=== PATIENT | male | born 1960 | race Two or more races ===

== ENCOUNTER 2022-11-07 10:13 | Inpatient (IN) | payer MEDICAID ==
[~2022-11-07] VITALS: Ht 182.9 cm; Wt 96.4 kg
[2022-11-07 10:46] LABS: Basophils # (auto) 0 10 ^3/uL (0-0.2); Basophils % (auto) 0.3 % (0.0-2.0); Eosinophils # (auto) 0.1 10 ^3/uL (0-0.8); Eosinophils % (auto) 0.9 % (0.0-7.0); Hemoglobin 12.8 g/dL (13.5-17.5); Monocytes # (auto) 0.6 10 ^3/uL (0-1.3); Nucleated Red Blood Cells % 0.1 %; Red Cell Distribution Width 14.5 % (11.8-14.3); White Blood Cell 6.7 10^3/uL (4.4-10.8)
[2022-11-07 10:49] LABS: Hematocrit 39.1 % (41.0-53.0); Lymphocytes # (auto) 2.1 10 ^3/uL (0.4-5.4); Lymphocytes % (auto) 30.8 % (10.0-50.0); Mean Corpuscular Hemoglobin 26.4 pg (28.0-32.0); Mean Corpuscular Hgb Conc. 32.8 g/dL (32.0-36.0); Mean Corpuscular Volume 80.4 fL (80.0-100.0); Monocytes % (auto) 9.1 % (0.0-12.0); Neutrophils % (auto) 58.9 % (37.0-80.0); Red Blood Cells 4.87 10^6/uL (4.5-5.90)
[2022-11-07 10:50] LABS: Albumin 2.2 g/dL (3.4-5.0); Calcium 8.1 mg/dL (8.5-10.1); Potassium 4.1 mmol/L (3.5-5.1)
[2022-11-07 11:00] LABS: BUN/Creatinine Ratio 14.5 (10.0-20.0); Bilirubin, Total 0.2 mg/dL (0.2-1.0); Total Protein 5.8 g/dL (6.4-8.2)
[2022-11-07] MEDS ORDERED: ASPirin 81 mg TAB PO ONE (11:30)
[2022-11-07] MEDS ORDERED: LISINOPRIL 20 MG TAB PO ONE (11:30)
[2022-11-07] MEDS ORDERED: InsuLIN REG 1unit/0.01ml Soln (100units/ml) IV ONE (12:15)
[2022-11-07] MEDS ORDERED: MORPHINE SULFATE INJ 2 MG/ml SYRG IV PRN ×2 (14:30)
[2022-11-07] MEDS ORDERED: HYDROcodone-ACET 5/325MG TAB PO PRN (14:30)
[2022-11-07] MEDS ORDERED: NITROGLYCERIN 0.4 MG SL TAB SL PRN (14:30)
[2022-11-07] MEDS ORDERED: LABETALOL HCL 5 MG/ML 4ML SYRINGE IV PRN (14:30)
[2022-11-07] MEDS ORDERED: DEXTROSE (50%) 50ML SYRG IV PRN (14:30)
[2022-11-07] MEDS ORDERED: NIFEdipine 10 MG CAP PO ONE (14:30)
[2022-11-07] MEDS ORDERED: DOCUSATE SOD 100 MG CAP PO PRN (14:30)
[2022-11-07] MEDS ORDERED: ACETAMINOPHEN 500 MG TAB PO PRN (14:30)
[2022-11-07] MEDS ORDERED: ONDANSETRON HCL 4 MG/2 ML VIAL IV PRN (14:30)
[2022-11-07] MEDS: ACCU-CHEK COMFORT CURVE STRIP VI SCH ×2 (16:00→20:00)
[2022-11-07] MEDS: InsuLIN REG 1unit/0.01ml Soln (100units/ml) SC SCH ×3 (16:00→22:52)
[2022-11-07 21:51] LABS: Urine Bacteria FEW /hpf (None Seen); Urine Blood TRACE /uL (Negative); Urine Hyaline Cast FEW /lpf (0 - 2); Urine WBC 2 /hpf (0 - 3)
[2022-11-08] MEDS: InsuLIN REG 1unit/0.01ml Soln (100units/ml) SC SCH ×2 (01:25→04:17)
[2022-11-08] MEDS: ACCU-CHEK COMFORT CURVE STRIP VI SCH ×3 (04:16→08:34)
[2022-11-08] MEDS ORDERED: DEXTROSE (50%) 50ML SYRG IV PRN (07:30)
[2022-11-08] MEDS ORDERED: SODIUM CHLORIDE 0.9% 1,000 ML IV ONE (07:30)
[2022-11-08] MEDS ORDERED: ACCU-CHEK COMFORT CURVE STRIP VI SCH (08:00)
[2022-11-08] MEDS ORDERED: InsuLIN REG 1unit/0.01ml Soln (100units/ml) SC SCH (08:00)
[2022-11-08] MEDS ORDERED: GABA-1250 PO (08:39)
[2022-11-08] MEDS ORDERED: HYDR25TA4 PO (08:39)
[2022-11-08] MEDS ORDERED: METF-370 PO (08:39)
[2022-11-08] MEDS ORDERED: AMLO1TAB22 PO (08:39)
[2022-11-08] MEDS ORDERED: LISI40TA16 PO (08:39)
[2022-11-08] MEDS ORDERED: SIMV20TA20 PO (08:39)
[2022-11-08 09:00] VITALS: BP 169/81
[2022-11-08] MEDS ORDERED: ASPirin 81 mg TAB PO SCH (10:00)
[2022-11-08] MEDS ORDERED: amLODIPine BESYLATE 5 MG TAB PO SCH (10:00)
[2022-11-08] MEDS ORDERED: LISI-713 PO (11:02)
[2022-11-08] MEDS ORDERED: AML5T PO (11:02)
[2022-11-08] MEDS ORDERED: HYDR25TA5 PO (11:02)
[2022-11-08] MEDS ORDERED: SIMV40TA42 PO (11:02)
[2022-11-08] MEDS ORDERED: METF-929 PO (11:02)
== END 2022-11-08 11:52 | disposition home or self-care (01) | DRG 199 ==
LOC: ER 10:13 → TELE 14:33 → TELE-WESTW 11-08 07:59
PROVIDERS: ADMIT Nurse Practitioner Acute Care; ATTEND Nurse Practitioner Acute Care
DX: I16.9 Hypertensive crisis, unspecified (principal); E11.40 Type 2 diabetes mellitus with diabetic neuropathy, unspecified; E11.65 Type 2 diabetes mellitus with hyperglycemia; I10 Essential (primary) hypertension; E78.5 Hyperlipidemia, unspecified; R51.9 Headache, unspecified; Z79.4 Long term (current) use of insulin; Z91.199 Patient's noncompliance with other medical treatment and regimen due to unspecified reason; Z79.899 Other long term (current) drug therapy
CPT/HCPCS: 36415; 70450; 71045; 80053; 81001; 82962; 83036; 83880; 84484; 85025; 93005; 96372; 96374; 96375; 99291; G0378; J1815; J3490

== ENCOUNTER 2025-04-12 14:00 | Inpatient (IN) | payer MEDICAID ==
[~2025-04-12] VITALS: Ht 182.9 cm; Wt 101.5 kg
[~2025-04-12 14:00] MED LIST: AML5T PO; AMLO1TAB22 PO; GABA-1250 PO; HYDR25TA4 PO; HYDR25TA5 PO; LISI-713 PO; LISI40TA16 PO; METF-370 PO; METF-929 PO; SIMV20TA20 PO; SIMV40TA42 PO
--- NOTE | 2025-04-12 14:08 | ED.PDOC ---
Altered Mental Status HPI Comments 65 year old male with PMHx HTN, HLD presents to the ED via EMS with a chief compliant of ALOC onset 3 days. Per EMS, patient's son noticed patient has been confused, laying in bed for the past 3 days. Upon ED arrival, patient is A7O to self, able to follow some commands. No other symptoms or modifying factors pre sent at this time. Chief Complaint: ALOC Time Seen by MD: 14:05 Reviewed Notes: Medications, Allergies Allergies: Coded Allergies: NO KNOWN ALLERGIES (Unverified , 11/07/22) Home Meds Active Scripts Hctz (Hydrochlorothiazide) 25 Mg Tab, 25 MG PO DAILY, #90 TAB Prov:MALINI NAGEL MOBILITY DEVELOPER 11/08/22 Simvastatin (Zocor) 40 Mg Tab, 0.5 TAB PO DAILY, #90 TAB 1 Refill Prov:MALINI NAGEL MOBILITY DEVELOPER 11/08/22 Lisinopril (Zestril) 40 Mg Tab, 1 TAB PO DAILY, #90 TAB 3 Refills Prov:MALINI NAGEL MOBILITY DEVELOPER 11/08/22 Amlodipine Besylate (NORVASC TABLET) 5 Mg Tb, 2 TAB PO DAILY, #120 TAB 5 Refills Prov:MALINI NAGEL MOBILITY DEVELOPER 11/08/22 Metformin HCl (Metformin Hydrochloride) 1,000 Mg Tab, 1000 MG PO BID, #120 TAB Prov:MALINI NAGEL MOBILITY DEVELOPER 11/08/22 Reported Medications Metformin Hydrochloride (Metformin Hcl) 500 Mg Tab, 1000 MG PO BIDWM, MG 11/08/22 Amlodipine Besylate (Amlodipine Besylate) 5 Mg Tab, 10 MG PO DAILY, MG 11/08/22 Hydrochlorothiazide (Hydrochlorothiazide) 25 Mg Tab, 25 MG PO DAILY, MG 11/08/22 Simvastatin (Simvastatin) 20 Mg Tab, 20 MG PO HS 11/08/22 Gabapentin (Gabapentin) 300 Mg Cap, 1 CAP PO HS 11/08/22 Lisinopril (Lisinopril) 40 Mg Tab, 1 TAB PO DAILY, #30 TAB 5 Refills 11/08/22 Information Source: Relative (Child), Emergency Med Personnel Mode of Arrival: EMS Severity: Moderate Timing: Days Duration: Since onset Prehospital treatment: None Quality: Decreased Alertness, Change in Behavior, Confusion History of: None Past Medical History PAST MEDICAL HISTORY: DM, HTN Surgical History: Denies all surgeries Family History Family History: Reviewed,noncontributory to illness Social History Smoker: Non-Smoker Alcohol: Denies ETOH Use Drugs: Denies Drug Use Lives In: Home Unable to Obtain due to: Altered Mental Status Physical Exam General Appearance: Normal HEENT: Normal ENT Inspection, Pharynx Normal, TMs Normal Neck: Full Range of Motion, Non-Tender, Normal, Normal Inspection Respiratory: Chest Non-Tender, Lungs Clear, No Accessory Muscle Use, No Respiratory Distress, Normal Breath Sounds Cardiovascular: No Edema, No JVD, No Murmur, No Gallop, Normal Peripheral Pulses, Regular Rate/Rhythm Breast Exam: Deferred Gastrointestinal: No Organomegaly, Non Tender, No Pulsatile Mass, Normal Bowel Sounds, Soft Genitalia: Deferred Pelvic: Deferred Rectal: Deferred Extremities: No calf tenderness, Normal capillary refill, Normal inspection, Normal range of motion, Non-tender, No pedal edema Musculoskeletal : Apperance: Normal Neurologic: Other (A&O to self, follows some commands) Cerebellar Function: Normal Reflexes: Normal Skin: Dry, Normal Color, Warm Lymphatic: No Adenopathy Was a procedure done? Was a procedure done?: No Differential Diagnosis (ALOC) Differential Diagnosis: Dehydration, Hypoglycemia, Encephalopathy, Sepsis, Hypoxemia, ETOH Intoxication, Heart Failure, Renal Failure X-Ray, Labs, Meds, VS Vital Signs Date Time Temp Pulse Resp B/P (MAP) Pulse Ox O2 Delivery O2 Flow Rate FiO2 04/12/25 14:04 53 04/12/25 14:00 95.0 54 20 136/63 98 95.0 Lab Test 04/12/25 15:17 04/12/25 15:13 04/12/25 14:00 Range/Units Troponin I High Sensitivity Pending 19 </=54 ng/L Urine Color Pending Urine Clarity Pending Urine pH Pending Urine Specific [place] Pending Urine Protein Pending Urine Ketones Pending Urine Blood Pending Urine Nitrite Pending Urine Bilirubin Pending Urine Urobilinogen Pending Urine Leukocyte Esterase Pending Urine RBC Pending Urine Microscopic WBC Pending Urine Squamous Epithelial Cells Pending Urine Bacteria Pending Urine Glucose Pending White Blood Count 5.9 4.4-10.8 10^3/uL Red Blood Count 3.36 L 4.5-5.90 10^6/uL Hemoglobin 8.6 L 13.5-17.5 g/dL Hematocrit 27.3 L 41.0-53.0 % Mean Corpuscular Volume 81.0 80.0-100.0 fL Mean Corpuscular Hemoglobin 25.5 L 28.0-32.0 pg Mean Corpuscular Hemoglobin Concent 31.4 L 32.0-36.0 g/dL Red Cell Distribution Width 18.5 H 11.8-14.3 % Platelet Count 209 140-450 10^3/uL Mean Platelet Volume 8.8 6.9-10.8 fL Neutrophils (%) (Auto) 84.3 H 37.0-80.0 % Lymphocytes (%) (Auto) 8.3 L 10.0-50.0 % Monocytes (%) (Auto) 7.1 0.0-12.0 % Eosinophils (%) (Auto) 0.0 0.0-7.0 % Basophils (%) (Auto) 0.3 0.0-2.0 % Neutrophils # (Auto) 5.0 1.6-8.6 10 ^3/uL Lymphocytes # (Auto) 0.5 0.4-5.4 10 ^3/uL Monocytes # (Auto) 0.4 0-1.3 10 ^3/uL Eosinophils # (Auto) 0 0-0.8 10 ^3/uL Basophils # (Auto) 0 0-0.2 10 ^3/uL Nucleated Red Blood Cells 0.2 % Sodium Level 140 136-145 mmol/L Potassium Level 6.0 *H 3.5-5.1 mmol/L Chloride Level 108 H 98-107 mmol/L Carbon Dioxide Level 16 L 20-31 mmol/L Anion Gap 16 H 5-15 Blood Urea Nitrogen 69 H 9-23 mg/dL Creatinine 6.08 H 0.700-1.30 mg/dL Glomerular Filtration Rate Calc 10 >90 mL/min BUN/Creatinine Ratio 11.3 10.0-20.0 Serum Glucose 157 H 74-106 mg/dL Lactic Acid Level 1.0 0.4-2.0 mmol/L Calcium Level 7.0 L 8.7-10.4 mg/dL Total Bilirubin < 0.2 L 0.2-1.0 mg/dL Aspartate Amino Transferase (AST) 56 H 13-40 U/L Alanine Aminotransferase (ALT) 47 H 7-40 U/L Alkaline Phosphatase 142 H 46-116 U/L B-Type Natriuretic Peptide 1231.62 0-100 pg/mL Total Protein 5.9 5.7-8.2 g/dL Albumin 3.5 3.2-4.8 g/dL Current Medications Medications (Trade) Dose Ordered Sig/Lurdes Route Start Time Stop Time Status Last Admin Sodium Chloride 1,000 ml @ 1,000 mls/hr Q1H ONCE IV 04/12/25 14:15 04/12/25 15:14 DC 04/12/25 14:52 Calcium Gluconate/ Sodium Chloride 50 ml @ 100 mls/hr Q30M IV 04/12/25 15:15 04/12/25 16:14 04/12/25 16:[address] [address] Ph: [phone] DIAGNOSTIC IMAGING Diagnostic Imaging Report : [id number] Signed PATIENT: KRISS TUCKER ACCT: [id number] UNIT: [id number] : 1960 LOC: ER ROOM / BED: / AGE / SEX: 65 / M ADM STATUS: REG ER SERVICE 16 ORDERING PHYSICIAN: DRAKE CARLOS MD PROCEDURE(s): CXRP - CHEST PORTABLE REASON: [facility] ORDER NUMBER(s): [id number], ACCESSION NUMBER(s): [id number] EXAM: XY CHEST PORTABLE HISTORY: [facility] COMPARISON: XY CHEST PORTABLE on DOS: 11/07/22 TECHNIQUE: Portable AP view of the chest was performed. FINDINGS: There is diffuse interstitial prominence, greater centrally and greater on the right. No pneumothorax. The heart is upper limits of normal in size. No fractures are identified about the bony thorax. IMPRESSION: Diffuse interstitial prominence is most suggestive of CHF, less likely reactive airways disease or interstitial pneumonia. ATED BY: JOSE ALMONTE MD DICTATED DATE/TIME: 04/12/251440 SIGNED BY: JOSE ALMONTE MD SIGNED DATE/TIME: 04/12/25 144 CC: [address] [address] Ph: [phone] DIAGNOSTIC IMAGING Diagnostic Imaging Report : [id number] Signed PATIENT: KRISS TUCKER ACCT: [id number] UNIT: [id number] : 1960 LOC: ER ROOM / BED: / AGE / SEX: 65 / M ADM STATUS: REG ER SERVICE 1416 ORDERING PHYSICIAN: DRAKE CARLOS MD PROCEDURE(s): HWOCT - HEAD WITHOUT CONTRAST REASON: ams ORDER NUMBER(s): [id number], ACCESSION NUMBER(s): [id number] EXAM: CT HEAD WITHOUT CONTRAST HISTORY: ams COMPARISON: CT HEAD WITHOUT CONTRAST on DOS: 11/07/22 TECHNIQUE: Noncontrast axial CT images of the head were performed. Sagittal and coronal reformatted images were obtained. This CT exam was performed using 1 or more of the following dose reduction techniques: Automated exposure control, adjustment of the mA and/or kv according to patient size, or the use of i terative reconstruction techniques. Radiation Dose: CTDI volume is 53.99 mGy. Dose-length product is 971.88 mGy*cm FINDINGS: No intracranial hemorrhage, mass, midline shift, hydrocephalus, or evidence of acute large vessel infarct. There is mild cerebellar tonsillar ectopia without evidence of Chiari I malformation. There is divergent optic gaze. There is mucosal thickening throughout the paranasal sinuses, with sparing of the left sphenoid sinus, with fluid in the maxillary sinuses, agvs-xrfyjit-hscy-right. The bilateral mastoid air cells and middle ear spaces are clear. No cranial fracture. There is diffuse scalp edema, greatest in the parietal regions, muvv-lhjvugk-fpkh-right. IMPRESSION: 1. No acute intracranial process. 2. Diffuse scalp edema, ttmq-zrzbwub-gqxg-right, etiology unknown. Does the patient have symptoms of anasarca or cellulitis 3. Paranasal sinus disease, greatest in the left maxillary sinus. ATED BY: JOSE ALMONTE MD DICTATED DATE/TIME: 04/12/25 150 SIGNED BY: JOSE ALMONTE MD SIGNED DATE/TIME: 04/12/25 150 CC: Time of 1ST Reevaluation: 14:35 Reevaluation 1ST: Unchanged Patient Education/Counseling: Other Family Education/Counseling: Diagnosis, Treatment, Prognosis SEPSIS Sepsis Screen Physician Orders Urinalysis (04/12/25 14:01) Blood Culture (04/12/25 14:01) Chest Portable (04/12/25 14:17) Head Without Contrast (04/12/25 14:16) Troponin-I Hs (04/12/25 15:01) Troponin-I Hs (04/12/25 17:01) Electrocardigram (04/12/25 15:01) Electrocardigram (04/12/25 17:01) Calcium Gluc 1,000mg/50ml-Ns (04/12/25 15:15) Cefepime 2gm/50ml Ns (Maxipime 2gm/50ml) (04/12/25 15:15) Vancomycin 1gm/250ml Kit (04/12/25 15:15) Insert Espinal Catheter QSHIFT (04/12/25 15:10) Sodium Bicarb 50meq/50ml Vial (04/12/25 16:00) Insulin R (Human) (Insulin R) (04/12/25 16:00) Dextrose 50% Syringe (04/12/25 16:00) Acetaminophen Iv (Ofirmev) (04/12/25 16:15) Vital Signs Date Time Temp Pulse Resp B/P (MAP) Pulse Ox O2 Delivery O2 Flow Rate FiO2 04/12/25 14:04 53 04/12/25 14:00 95.0 54 20 136/63 98 95.0 Laboratory Tests Test 04/12/25 14:00 Lactic Acid Level 1.0 mmol/L (0.4-2.0) White Blood Count 5.9 10^3/uL (4.4-10.8) Medications Medications Dose Ordered Sig/Lurdes Route Start Time Stop Time Status Last Admin Dose Admin Calcium Gluconate/ Sodium Chloride 50 ml @ 100 mls/hr Q30M IV 04/12/25 15:15 04/12/25 16:14 04/12/25 16:00 Sodium Chloride 1,000 ml @ 1,000 mls/hr Q1H ONCE IV 04/12/25 14:15 04/12/25 15:14 DC 04/12/25 14:52 Departure 1 Departure Time of Disposition: 16:03 (Patient likely with renal failure causing hyperkalemia secondary to obstruction. Patient also possibly septic. And you not give patient fluid boluses patient is clinically volume overloaded. We will admit patient for further workup) Impression: Primary Impression: Metabolic encephalopathy Additional Impressions: Altered mental status Hyperkalemia Acute renal failure (ARF) Disposition: ADMITTED INPATIENT Admit to: [facility] Condition: Guarded Critical Care Note Critical Care Time?: Yes Critical care comment: Acute renal failure with hyperkalemia Authorized and Performed by: Drake Carlos MD Total critical care time: Approximately 122 minutes Due to a high probability of clinically significant, life threatening deterioration, the patient required my highest level of preparedness to intervene emergently and I personally spent this critical care time directly and personally managing the patient. This critical care time included obtaining a history; examining the patient; pulse oximetry; ordering and review of studies; arranging urgent treatment with development of a management plan; evaluation of patient's response to treatment; frequent reassessment; and, discussions with other providers. This critical care time was performed to assess and manage the high probability of imminent, life-threatening deterioration that could result in multi-organ failure. It was exclusive of separately billable procedures and treating other patients and teaching time. Please see my other sections and the rest of the note for further information on patient assessment and treatment. Stability Stability form required: No Heart Score Heart Score: Heart Score Response (Comments) Value History N/A 0 EKG N/A 0 Age N/A 0 Risk Factors N/A 0 Troponin N/A 0 Total 0 I personally scribed for DRAKE CARLOS MD ([email or web address]) on 04/12/25 at 14:08. Electronically submitted by Tyra Gutierrez ([email or web address]). I personally scribed for DRAKE CARLOS MD ([email or web address]) on 04/12/25 at 15:24. Electronically submitted by Tyra Gutierrez ([email or web address]). DRAKE CARLOS MD Apr 12, 2025 14:08
[2025-04-12 14:20] VITALS: PULSE 54; RESP 14; O2SAT 93
[2025-04-12 14:26] LABS: Hematocrit 27.3 % (41.0-53.0); Hemoglobin 8.6 g/dL (13.5-17.5); Mean Corpuscular Hemoglobin 25.5 pg (28.0-32.0); Mean Corpuscular Volume 81.0 fL (80.0-100.0); Nucleated Red Blood Cells % 0.2 %
[2025-04-12 14:44] LABS: Albumin 3.5 g/dL (3.2-4.8); Anion Gap 16 (5-15); BUN/Creatinine Ratio 11.3 (10.0-20.0); Sodium 140 mmol/L (136-145); Total Protein 5.9 g/dL (5.7-8.2)
--- NOTE | 2025-04-12 14:44 | DVH ---
EXAM: XY CHEST PORTABLE HISTORY: ams COMPARISON: XY CHEST PORTABLE on DOS: 11/07/22 TECHNIQUE: Portable AP view of the chest was performed. FINDINGS: There is diffuse interstitial prominence, greater centrally and greater on the right. No pneumothorax. The heart is upper limits of normal in size. No fractures are identified about the bony thorax. IMPRESSION: Diffuse interstitial prominence is most suggestive of CHF, less likely reactive airways disease or interstitial pneumonia.
[2025-04-12 14:52] LABS: Alanine Aminotransferase 47 U/L (7-40); Alkaline Phosphatase 142 U/L (46-116); Bilirubin, Total < 0.2 mg/dL (0.2-1.0); Blood Urea Nitrogen 69 mg/dL (9-23); Calcium 7.0 mg/dL (8.7-10.4); Carbon Dioxide 16 mmol/L (20-31); Chloride 108 mmol/L (98-107); Glucose 157 mg/dL (74-106)
[2025-04-12] MEDS: SODIUM CHLORIDE 0.9% 1,000 ML IV ONE (14:52)
[2025-04-12 14:58] LABS: Potassium 6.0 mmol/L (3.5-5.1)
--- NOTE | 2025-04-12 15:05 | DVH ---
EXAM: CT HEAD WITHOUT CONTRAST HISTORY: ams COMPARISON: CT HEAD WITHOUT CONTRAST on DOS: 11/07/22 TECHNIQUE: Noncontrast axial CT images of the head were performed. Sagittal and coronal reformatted images were obtained. This CT exam was performed using 1 or more of the following dose reduction techniques: Automated exposure control, adjustment of the mA and/or kv according to patient size, or the use of iterative reconstruction techniques. Radiation Dose: CTDI volume is 53.99 mGy. Dose-length product is 971.88 mGy*cm FINDINGS: No intracranial hemorrhage, mass, midline shift, hydrocephalus, or evidence of acute large vessel infarct. There is mild cerebellar tonsillar ectopia without evidence of Chiari I malformation. There is divergent optic gaze. There is mucosal thickening throughout the paranasal sinuses, with sparing of the left sphenoid sinus, with fluid in the maxillary sinuses, dywl-vrdhtut-irwp-right. The bilateral mastoid air cells and middle ear spaces are clear. No cranial fracture. There is diffuse scalp edema, greatest in the parietal regions, fpfg-otmzgtt-buba-right. IMPRESSION: 1. No acute intracranial process. 2. Diffuse scalp edema, jing-rzptvpv-gbwi-right, etiology unknown. Does the patient have symptoms of anasarca or cellulitis 3. Paranasal sinus disease, greatest in the left maxillary sinus.
--- NOTE | 2025-04-12 15:12 | ECG ---
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
[2025-04-12] MEDS: CALCIUM GLUC 1,000mg/50ml-NS 50 ML IV SCH (15:59)
[2025-04-12 16:12] LABS: Urine Budding Yeast OCCASIONAL /hpf (None Seen); Urine Protein, UAD 3+ (Negative)
[2025-04-12] MEDS ORDERED: ACETAMINOPHEN IV 1000 MG/100ML (10MG/ML) IV ONE (16:15)
[2025-04-12] MEDS: SODIUM BICARB 8.4% 50Meq/50ml SYR Vial IV ONE (16:17)
[2025-04-12] MEDS: DEXTROSE (50%) 50ML SYRG IV ONE (16:18)
[2025-04-12] MEDS: InsuLIN REG 1unit/0.01ml Soln (100units/ml) IV ONE (16:23)
[2025-04-12] MEDS: CEFEPIME 2GM/50ML NS 50 ML IV ONE (16:50)
--- NOTE | 2025-04-12 16:59 | ECG ---
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
[2025-04-12] MEDS: VANCOMYCIN 1GM/250ML KIT 250 ML IV ONE (17:10)
--- NOTE | 2025-04-12 17:24 | ECG ---
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
[2025-04-12] MEDS: SODIUM CHLORIDE 0.9% 500 ML IV ONE (19:45)
[2025-04-12] MEDS ORDERED: MORPHINE SULFATE INJ 2 MG/ml SYRG IV PRN (19:45)
[2025-04-12] MEDS ORDERED: DEXTROSE (50%) 50ML SYRG IV PRN (19:45)
[2025-04-12] MEDS ORDERED: NITROGLYCERIN 0.4 MG SL TAB SL PRN (19:45)
[2025-04-12 19:59] LABS: Base Excess -8.9 mmol/L (-2.0-3.0)
[2025-04-12 19:59] LABS: Sodium 143 mmol/L (136-145)
[2025-04-12 20:00] LABS: Anion Gap 19 (5-15)
[2025-04-12 20:04] VITALS: PULSE 59; RESP 18; O2SAT 97
[2025-04-12 20:05] LABS: BUN/Creatinine Ratio 11.6 (10.0-20.0)
[2025-04-12 20:41] LABS: Blood Urea Nitrogen 71 mg/dL (9-23); Calcium 7.2 mg/dL (8.7-10.4); Carbon Dioxide 14 mmol/L (20-31); Chloride 110 mmol/L (98-107); Glucose 207 mg/dL (74-106); Potassium 5.2 mmol/L (3.5-5.1)
[2025-04-12 20:42] LABS: Creatine Kinase IFCC 699 U/L (46-171)
[2025-04-12] MEDS: SODIUM ZIRCONIUM CYCL 10 GM PAK PO ONE (22:45)
[2025-04-12] MEDS: FUROSEMIDE 40 MG/4 ML VIAL IV ONE (22:45)
--- NOTE | 2025-04-12 22:45 | DVHHP2 ---
History of Present Illness Reason for Visit: Altered mental status History of Present Illness 65-year-old male presents for evaluation of altered mental status. Patient was noted to be E come progressively more lethargic over the past few day by family members. Patient is currently lethargic and oriented x3. Patient denies chest pain. Reports mild shortness for breath. No unilateral weakness or slurred speech noted. Past Medical History Hypertension, chronic kidney disease, diabetes mellitus, dyslipidemia Past Surgical History Denies Family History Noncontributory Smoke: No ALCOHOL: none Drugs: None Lives: with Family Review of Systems Review of Systems Review of systems are limited due to the patient's altered mental status. Allergies: Coded Allergies: NO KNOWN ALLERGIES (Unverified , 11/07/22) Medications Current Medications Medications Dose Ordered Sig/Lurdes Route Start Time Stop Time Status Last Admin Dose Admin Hydralazine HCl 10 mg Q6HP PRN IV 04/12/25 19:45 Diagnostic Test (Pha) 1 strip Q6HR 04/13/25 00:00 Insulin Human Regular Q6HR SC 04/13/25 00:00 Dextrose 50 ml UD PRN IV 04/12/25 19:45 Ondansetron HCl 4 mg Q4HP PRN IV 04/12/25 19:45 Nitroglycerin 0.4 mg Q5MINP PRN SL 04/12/25 19:45 Morphine Sulfate 2 mg Q30M PRN IV 04/12/25 19:45 Exam Vital Signs Vital Signs Date Time Temp Pulse Resp B/P (MAP) Pulse Ox O2 Delivery O2 Flow Rate FiO2 04/12/25 21:00 60 18 157/63 (94) 97 04/12/25 20:04 98.1 98.1 04/12/25 20:04 Nasal Cannula* 2 28 Exam Gen: 65-year-old male in mild distress, morbidly obese Skin: Warm, dry, normal color and texture, no rash. HEENT: Normocephalic atraumatic, mucous membranes moist and pink. Neck: Cervical and supraclavicular nodes normal without enlargement, trachea is midline, thyroid gland is normal without masses. Pulmonary: Clear to auscultation and percussion bilaterally. Cardiac: Regular rate and rhythm. No murmur Abdomen: Soft, nontender, nondistended, bowel sounds present all 4 quadrants, no guarding, no rigidity, no organomegaly. Extremities: No cyanosis, clubbing, no edema Neuro: Cranial nerves II through XII grossly intact, lethargic, no focal motor deficits. Labs/Xrays ORDERING PHYSICIAN: DRAKE CARLOS MD PROCEDURE(s): HWOCT - HEAD WITHOUT CONTRAST REASON: [facility] ORDER NUMBER(s): [id number], ACCESSION NUMBER(s): [id number] EXAM: CT HEAD WITHOUT CONTRAST HISTORY: ams COMPARISON: CT HEAD WITHOUT CONTRAST on DOS: 11/07/22 TECHNIQUE: Noncontrast axial CT images of the head were performed. Sagittal and coronal reformatted images were obtained. This CT exam was performed using 1 or more of the following dose reduction techniques: Automated exposure control, adjustment of the mA and/or kv according to patient size, or the use of iterative reconstruction techniques. Radiation Dose: CTDI volume is 53.99 mGy. Dose-length product is 971.88 mGy*cm FINDINGS: No intracranial hemorrhage, mass, midline shift, hydrocephalus, or evidence of acute large vessel infarct. There is mild cerebellar tonsillar ectopia without evidence of Chiari I malformation. There is divergent optic gaze. There is mucosal thickening throughout the paranasal sinuses, with sparing of the left sphenoid sinus, with fluid in the maxillary sinuses, [id number]. Th e bilateral mastoid air cells and middle ear spaces are clear. No cranial fracture. There is diffuse scalp edema, greatest in the parietal regions, [id number]. IMPRESSION: 1. No acute intracranial process. 2. Diffuse scalp edema, [id number]-right, etiology unknown. Does the patient have symptoms of anasarca or cellulitis 3. Paranasal sinus disease, greatest in the left maxillary sinus. RING PHYSICIAN: DRAKE CARLOS MD PROCEDURE(s): CXRP - CHEST PORTABLE REASON: [facility] ORDER NUMBER(s): [id number], ACCESSION NUMBER(s): [id number] EXAM: XY CHEST PORTABLE HISTORY: ams COMPARISON: XY CHEST PORTABLE on DOS: 11/07/22 TECHNIQUE: Portable AP view of the chest was performed. FINDINGS: There is diffuse interstitial prominence, greater centrally and greater on the right. No pneumothorax. The heart is upper limits of normal in size. No fractures are identified about the bony thorax. IMPRESSION: Diffuse interstitial prominence is most suggestive of CHF, less likely reactive airways disease or interstitial pneumonia. ATED BY: JOSE ALMONTE MD Labs Test 04/12/25 19:51 04/12/25 16:55 04/12/25 15:13 04/12/25 14:00 Range/Units Blood Gas Specimen Type Arterial Blood Gas Sample Site Right brachial Blood Gas Patient Temperature 37.0 Arterial Blood Date Drawn [id number] Arterial Blood pH 7.287 L 7.350-7.450 Arterial Blood Partial Pressure CO2 36.3 35.0-48.0 mmHg Arterial Blood Partial Pressure O2 85.5 83.0-108.0 mmHg Arterial Blood HCO3 16.9 L 21.0-28.0 mmol/L Arterial Blood Oxygen Saturation 95.3 94.0-98.0 % Arterial Blood Base Excess -8.9 L -2.0-3.0 mmol/L Arterial Blood Oxyhemoglobin 94.1 94.0-98.0 % Arterial Blood Carboxyhemoglobin 1.1 0.5-1.5 % Arterial Blood Methemoglobin 0.2 0.0-1.5 % Andrzej Test N/a Blood Gas Total Hemoglobin 9.00 L 13.5-17.5 g/dL Blood Gas Liter Flow 2.00 Blood Gas Modality Nasal cannula FiO2 % 28.0 Sodium Level 143 136-145 mmol/L Potassium Level 5.2 H 3.5-5.1 mmol/L Chloride Level 110 H 98-107 mmol/L Carbon Dioxide Level 14 L 20-31 mmol/L Anion Gap 19 H 5-15 Blood Urea Nitrogen 71 H 9-23 mg/dL Creatinine 6.10 H 0.700-1.30 mg/dL Glomerular Filtration Rate Calc 10 >90 mL/min BUN/Creatinine Ratio 11.6 10.0-20.0 Serum Glucose 207 H 74-106 mg/dL Calcium Level 7.2 L 8.7-10.4 mg/dL Creatine Kinase 699 H 46-171 U/L Troponin I High Sensitivity 18 </=54 ng/L Urine Color Light-yellow Yellow Urine Clarity Turbid H Clear Urine pH 6.0 5.0-9.0 Urine Specific [place] 1.014 1.001-1.035 Urine Protein 3+ H Negative Urine Ketones Negative Negative Urine Blood Negative Negative /uL Urine Nitrite Negative Negative Urine Bilirubin Negative Negative Urine Urobilinogen Normal Negative mg/dL Urine Leukocyte Esterase Negative Negative /uL Urine RBC 2 0 - 3 /hpf Urine Microscopic WBC < 1 0-3 /HPF Urine Squamous Epithelial Cells None seen <5 /hpf Urine Bacteria None seen None Seen /hpf Urine Yeast (Budding) Occasional None Seen /hpf Urine Glucose 3+ H Normal mg/dL White Blood Count 5.9 4.4-10.8 10^3/uL Red Blood Count 3.36 L 4.5-5.90 10^6/uL Hemoglobin 8.6 L 13.5-17.5 g/dL Hematocrit 27.3 L 41.0-53.0 % Mean Corpuscular Volume 81.0 80.0-100.0 fL Mean Corpuscular Hemoglobin 25.5 L 28.0-32.0 pg Mean Corpuscular Hemoglobin Concent 31.4 L 32.0-36.0 g/dL Red Cell Distribution Width 18.5 H 11.8-14.3 % Platelet Count 209 140-450 10^3/uL Mean Platelet Volume 8.8 6.9-10.8 fL Neutrophils (%) (Auto) 84.3 H 37.0-80.0 % Lymphocytes (%) (Auto) 8.3 L 10.0-50.0 % Monocytes (%) (Auto) 7.1 0.0-12.0 % Eosinophils (%) (Auto) 0.0 0.0-7.0 % Basophils (%) (Auto) 0.3 0.0-2.0 % Neutrophils # (Auto) 5.0 1.6-8.6 10 ^3/uL Lymphocytes # (Auto) 0.5 0.4-5.4 10 ^3/uL Monocytes # (Auto) 0.4 0-1.3 10 ^3/uL Eosinophils # (Auto) 0 0-0.8 10 ^3/uL Basophils # (Auto) 0 0-0.2 10 ^3/uL Nucleated Red Blood Cells 0.2 % Lactic Acid Level 1.0 0.4-2.0 mmol/L Total Bilirubin < 0.2 L 0.2-1.0 mg/dL Aspartate Amino Transferase (AST) 56 H 13-40 U/L Alanine Aminotransferase (ALT) 47 H 7-40 U/L Alkaline Phosphatase 142 H 46-116 U/L B-Type Natriuretic Peptide 1231.62 0-100 pg/mL Total Protein 5.9 5.7-8.2 g/dL Albumin 3.5 3.2-4.8 g/dL SEPSIS Sepsis Screen Date sepsis recognized/suspect: Apr 12, 2025 Time Sepsis recognized/suspect: 2020 Recent Procedure: No On Antibiotic Therapy: No Respiratory Rate >20: No Heart Rate >90: No Temp<36 C (96.8 F) or >38.3 C: No SBP <90 or MAP <65 mmHG: No New Acute Mental Status Change: No Is the patient on CPAP, BIPAP,: No Physician Orders Insert Espinal Catheter QSHIFT (04/12/25 15:10) Hydralazine Injection (Apresoline Inject (04/12/25 19:45) *[facility] (04/12/25 19:35) Abg W/ Co-Ox (04/12/25 19:35) Glucose Blood (Accu-Chek Comfort Curve T (04/13/25 00:00) Insulin R (Human) (Insulin R) (04/13/25 00:00) Dextrose 50% Syringe (04/12/25 19:45) Admit (04/12/25 19:35) Ondansetron Hcl (Zofran) (04/12/25 19:45) Complete Blood Count (04/13/25 04:00) Comprehensive Metabolic Panel (04/13/25 04:00) Npo (Nothing By Mouth) Diet (04/13/25 Breakfast) Condition: Critical (04/12/25 19:35) Bedrest With Bathroom Privileg (04/12/25 19:35) Nitroglycerin Sublingual (Ntrostat Subli (04/12/25 19:45) Morphine Sulfate Injection (04/12/25 19:45) Stat Ekg For Chest Pain (04/12/25 19:35) Notify Of Changes From Base (04/12/25 19:35) Clinical Orthoptist For 24 Hours (04/12/25 19:35) Emergency Dysrhythmia Protocol (04/12/25 19:35) Rhythm Strips Once Every Shift (04/12/25 19:35) Oxygen By Nasal Cannula (04/12/25 19:35) Sodium Zirconium Cyclosilicate (Lokelma) (04/12/25 22:45) Furosemide Injection (Lasix Injection) (04/12/25 22:45) Vital Signs Date Time Temp Pulse Resp B/P (MAP) Pulse Ox O2 Delivery O2 Flow Rate FiO2 04/12/25 21:00 60 18 157/63 (94) 97 04/12/25 20:30 68 17 146/79 (101) 98 04/12/25 20:04 98.1 59 18 104/79 (87) 97 98.1 04/12/25 20:04 59 18 97 Nasal Cannula* 2 28 04/12/25 20:00 59 04/12/25 18:00 97.2 61 15 158/73 (101) 100 97.2 04/12/25 17:03 63 04/12/25 17:00 63 15 163/72 (102) 98 04/12/25 16:49 96.3 61 14 151/74 (99) 97 96.3 04/12/25 16:36 61 14 144/71 (95) 99 04/12/25 16:00 55 12 125/63 (83) 99 04/12/25 15:51 55 04/12/25 15:00 53 13 117/54 (75) 93 Laboratory Tests Test 04/12/25 14:00 Lactic Acid Level 1.0 mmol/L (0.4-2.0) White Blood Count 5.9 10^3/uL (4.4-10.8) Medications Medications Dose Ordered Sig/Lurdes Route Start Time Stop Time Status Last Admin Dose Admin Calcium Gluconate/ Sodium Chloride 50 ml @ 100 mls/hr Q30M IV 04/12/25 15:15 04/12/25 16:14 DC 04/12/25 16:00 100 MLS/HR Cefepime HCl 50 ml @ 50 mls/hr ONCE ONCE IV 04/12/25 15:15 04/12/25 16:14 DC 04/12/25 16:50 50 MLS/HR Dextrose 50 ml ONCE ONCE IV 04/12/25 16:00 04/12/25 16:07 DC 04/12/25 16:18 50 ML Insulin Human Regular 10 units ONCE ONCE IV 04/12/25 16:00 04/12/25 16:07 DC 04/12/25 16:23 10 UNITS Sodium Bicarbonate 100 ml ONCE ONCE IV 04/12/25 16:00 04/12/25 16:07 DC 04/12/25 16:17 100 ML Sodium Chloride 1,000 ml @ 1,000 mls/hr Q1H ONCE IV 04/12/25 14:15 04/12/25 15:14 DC 04/12/25 14:52 1,000 MLS/HR Vancomycin HCl 250 ml @ 250 mls/hr ONCE ONCE IV 04/12/25 15:15 04/12/25 16:14 DC 04/12/25 17:10 250 MLS/HR Assessment/Plan Assessment/Plan Assessment Metabolic encephalopathy Acute renal failure Azotemia Altered mental status secondary to the above Diabetes mellitus Plan Admit the patient to [facility] to the hospitalist Nephrology consultation Hyperkalemia protocol Continue treatment per orders. Total critical care time excluding procedures performed this 50 minutes. Plan discussed with: Patient My Orders Orders - JEFFREY PITTS Procedure Category Date Status Time Hydralazine Injection PHA 04/12/25 In Process (Apresoline Inject 19:45 *[facility] CONS 04/12/25 Transmitted -[place] 19:35 Abg W/ Co-Ox RT 04/12/25 Logged 19:35 Glucose Blood PHA 04/13/25 In Process (Accu-Chek Comfort 00:00 Insulin R (Human) PHA 04/13/25 In Process (Insulin R) 00:00 Dextrose 50% Syringe PHA 04/12/25 In Process 19:45 Admit ADMIT 04/12/25 Transmitted 19:35 Ondansetron Hcl PHA 04/12/25 In Process (Zofran) 19:45 Complete Blood Count LAB 04/13/25 Verified 04:00 Comprehensive LAB 04/13/25 Verified Metabolic Panel 04:00 Npo (Nothing By DIET 04/13/25 Transmitted Mouth) Diet Breakfast Condition: Critical [facility] 04/12/25 In Process 19:35 Bedrest With Bathroom [place] 04/12/25 In Process Privileg 19:35 Nitroglycerin PHA 04/12/25 In Process Sublingual (Ntrostat 19:45 Morphine Sulfate PHA 04/12/25 In Process Injection 19:45 Stat Ekg For Chest [place] 04/12/25 In Process Pain 19:35 Notify Md Of Changes [facility] 04/12/25 In Process From Base 19:35 Clinical Orthoptist For [facility] 04/12/25 In Process 24 Hours 19:35 Emergency Dysrhythmia [facility] 04/12/25 In Process Protocol 19:35 Rhythm Strips Once [facility] 04/12/25 In Process Every Shift 19:35 Oxygen By Nasal RT 04/12/25 Transmitted Cannula 19:35 Sodium Zirconium PHA 04/12/25 Verified Cyclosilicate 22:45 Furosemide Injection PHA 04/12/25 Verified (Lasix Injection) 22:45 Date of Service: Apr 12, 2025 Billing Provider: JEFFREY PITTS Common Visit Codes: 34933-[id number] CARE 30-74 MIN JEFFREY PITTS Apr 12, 2025 22:45
[2025-04-12] MEDS: InsuLIN REG 1unit/0.01ml Soln (100units/ml) SC SCH (23:37)
[2025-04-12] MEDS: ACCU-CHEK COMFORT CURVE STRIP VI SCH (23:38)
[2025-04-13] MEDS: hydrALAZINE HCL 20 MG/ML VL IV PRN (02:17)
[2025-04-13 04:53] LABS: Hematocrit 27.5 % (41.0-53.0); Hemoglobin 8.9 g/dL (13.5-17.5); Mean Corpuscular Hemoglobin 26.0 pg (28.0-32.0); Mean Corpuscular Volume 80.3 fL (80.0-100.0); Nucleated Red Blood Cells % 0.2 %
[2025-04-13 05:23] LABS: Alanine Aminotransferase 39 U/L (7-40); Albumin 3.2 g/dL (3.2-4.8); Alkaline Phosphatase 114 U/L (46-116); Anion Gap 16 (5-15); BUN/Creatinine Ratio 9.8 (10.0-20.0); Potassium 5.1 mmol/L (3.5-5.1); Sodium 142 mmol/L (136-145); Total Protein 5.8 g/dL (5.7-8.2)
[2025-04-13 05:27] LABS: Bilirubin, Total < 0.2 mg/dL (0.2-1.0); Blood Urea Nitrogen 59 mg/dL (9-23); Calcium 7.3 mg/dL (8.7-10.4); Carbon Dioxide 17 mmol/L (20-31); Chloride 109 mmol/L (98-107); Glucose 106 mg/dL (74-106)
[2025-04-13 08:00] VITALS: PULSE 58; RESP 23; O2SAT 95
[2025-04-13 10:05] LABS: Base Excess -8.7 mmol/L (-2.0-3.0)
--- NOTE | 2025-04-13 10:48 | DVHCONRES ---
Date Seen: Apr 13, 2025 Resident Creating Document: MYRON ARNDT RESDIENT History of Present Illness This is a 65-year-old male with past medical history of hypertension, CKD, diabetes, dyslipidemia brought in due to altered mental status. Patient was noted to become progressively more lethargic over the past few day. Patient is currently lethargic and oriented x2. Patient denies chest pain. Reports mild shortness for breath. No unilateral weakness or slurred speech noted. Family History: Diabetes mellitus G8 MOTHER Hypertension G8 MOTHER Allergies: Coded Allergies: NO KNOWN ALLERGIES (Unverified , 11/07/22) Home Meds Active Scripts Hctz (Hydrochlorothiazide) 25 Mg Tab, 25 MG PO DAILY, #90 TAB Prov:MALINI NAGEL [employer] 11/08/22 Simvastatin (Zocor) 40 Mg Tab, 0.5 TAB PO DAILY, #90 TAB 1 Refill Prov:MALINI NAGEL [employer] 11/08/22 Lisinopril (Zestril) 40 Mg Tab, 1 TAB PO DAILY, #90 TAB 3 Refills Prov:MALINI NAGEL [employer] LO[employer]ER 11/08/22 Amlodipine Besylate (NORVASC TABLET) 5 Mg Tb, 2 TAB PO DAILY, #120 TAB 5 Refills Prov:MALINI NAGEL [employer] LODE MINER 11/08/22 Metformin HCl (Metformin Hydrochloride) 1,000 Mg Tab, 1000 MG PO BID, #120 TAB Prov:MALINI NAGEL [employer] LO[employer] MINER 11/08/22 Reported Medications Metformin Hydrochloride (Metformin Hcl) 500 Mg Tab, 1000 MG PO BIDWM, MG 11/08/22 Amlodipine Besylate (Amlodipine Besylate) 5 Mg Tab, 10 MG PO DAILY, MG 11/08/22 Hydrochlorothiazide (Hydrochlorothiazide) 25 Mg Tab, 25 MG PO DAILY, MG 11/08/22 Simvastatin (Simvastatin) 20 Mg Tab, 20 MG PO HS 11/08/22 Gabapentin (Gabapentin) 300 Mg Cap, 1 CAP PO HS 11/08/22 Lisinopril (Lisinopril) 40 Mg Tab, 1 TAB PO DAILY, #30 TAB 5 Refills 11/08/22 Current Medications Current Medications Medications (Trade) Dose Ordered Sig/Lurdes Route PRN Reason Start Time Stop Time Status Last Admin Calcium Gluconate/ Sodium Chloride 50 ml @ 100 mls/hr Q30M IV 04/12/25 15:15 04/12/25 16:14 DC 04/12/25 16:00 Hydralazine HCl (Apresoline Injection) 10 mg Q6HP PRN IV SBP>150 04/12/25 19:45 04/13/25 02:17 Diagnostic Test (Pha) (Accu-Chek Comfort Curve T) 1 strip Q6HR 04/13/25 00:00 04/13/25 05:36 Insulin Human Regular (InsuLIN R) Q6HR SC 04/13/25 00:00 Dextrose 50 ml UD PRN IV Blood Sugar LESS THAN 60 04/12/25 19:45 Ondansetron HCl (Zofran) 4 mg Q4HP PRN IV NAUSEA / VOMITING 04/12/25 19:45 Nitroglycerin (Ntrostat Sublingual) 0.4 mg Q5MINP PRN SL FOR CHEST PAIN 04/12/25 19:45 Morphine Sulfate 2 mg Q30M PRN IV FOR CHEST PAIN 04/12/25 19:45 Ipratropium [place] (Atrovent Medneb) 0.5 mg Q6HWA NEB 04/13/25 12:00 Albuterol (Ventolin Medneb) 2.5 mg Q6HWA NEB 04/13/25 12:00 Furosemide (Lasix Injection) 80 mg DAILY IV 04/14/25 10:00 UNV Review of Systems Patient seen and examined at the bedside. Patient is complaining of shortness of breaths. Vital Signs Vital Signs Date Time Temp Pulse Resp B/P (MAP) Pulse Ox O2 Delivery O2 Flow Rate FiO2 04/13/25 08:00 58 23 95 Simple Mask* 6 50 04/13/25 08:00 97.5 158/62 (94) 97.5 Physical Exam General Appearance: Alert, Oriented X3, Cooperative, in severe respiratory distress HEENT: Atraumatic, PERRLA, EOMI, Mucous membrane moist/pink Respiratory: Bilateral crackles Cardiovascular: Regular rate, Normal S1, Normal S2, No murmurs, no chest wall tenderness Abdominal: Normal bowel sounds, Soft, No tenderness, No hepatospenomegaly, No masses Extremities: Bilateral grade 2 pedal edema Skin: No rashes, No breakdown, No significant lesion Neuro: Normal gait, Normal speech, Strength at 5/5 X4 ext, Normal tone, Sen sation intact, Cranial nerves 3-12 NL, Reflexes 2+ Psych/Mental Status: Mental status NL, Mood NL Labs/Diagnostic Data Labs Test 04/13/25 09:47 04/13/25 04:30 04/12/25 16:55 04/12/25 15:13 Range/Units Blood Gas Specimen Type Arterial Blood Gas Sample Site Right radial Blood Gas Patient Temperature 37.0 Arterial Blood Date Drawn [id number] Arterial Blood pH 7.294 L 7.350-7.450 Arterial Blood Partial Pressure CO2 36.0 35.0-48.0 mmHg Arterial Blood Partial Pressure O2 81.3 L 83.0-108.0 mmHg Arterial Blood HCO3 17.1 L 21.0-28.0 mmol/L Arterial Blood Oxygen Saturation 94.3 94.0-98.0 % Arterial Blood Base Excess -8.7 L -2.0-3.0 mmol/L Arterial Blood Oxyhemoglobin 93.5 L 94.0-98.0 % Arterial Blood Carboxyhemoglobin 0.7 0.5-1.5 % Arterial Blood Methemoglobin 0.2 0.0-1.5 % Andrzej Test Yes Blood Gas Total Hemoglobin 9.40 L 13.5-17.5 g/dL Blood Gas Liter Flow 6.00 Blood Gas Modality Mask - simple Blood Gas Spontaneous Rate 24 FiO2 % 40.0 White Blood Count 9.3 # 4.4-10.8 10^3/uL Red Blood Count 3.43 L 4.5-5.90 10^6/uL Hemoglobin 8.9 L 13.5-17.5 g/dL Hematocrit 27.5 L 41.0-53.0 % Mean Corpuscular Volume 80.3 80.0-100.0 fL Mean Corpuscular Hemoglobin 26.0 L 28.0-32.0 pg Mean Corpuscular Hemoglobin Concent 32.4 32.0-36.0 g/dL Red Cell Distribution Width 18.2 H 11.8-14.3 % Platelet Count 222 140-450 10^3/uL Mean Platelet Volume 8.8 6.9-10.8 fL Neutrophils (%) (Auto) 81.9 H 37.0-80.0 % Lymphocytes (%) (Auto) 7.9 L 10.0-50.0 % Monocytes (%) (Auto) 10.0 0.0-12.0 % Eosinophils (%) (Auto) 0.0 0.0-7.0 % Basophils (%) (Auto) 0.2 0.0-2.0 % Neutrophils # (Auto) 7.6 1.6-8.6 10 ^3/uL Lymphocytes # (Auto) 0.7 0.4-5.4 10 ^3/uL Monocytes # (Auto) 0.9 0-1.3 10 ^3/uL Eosinophils # (Auto) 0 0-0.8 10 ^3/uL Basophils # (Auto) 0 0-0.2 10 ^3/uL Nucleated Red Blood Cells 0.2 % Sodium Level 142 136-145 mmol/L Potassium Level 5.1 3.5-5.1 mmol/L Chloride Level 109 H 98-107 mmol/L Carbon Dioxide Level 17 L 20-31 mmol/L Anion Gap 16 H 5-15 Blood Urea Nitrogen 59 #H 9-23 mg/dL Creatinine 6.03 H 0.700-1.30 mg/dL Glomerular Filtration Rate Calc 10 >90 mL/min BUN/Creatinine Ratio 9.8 L 10.0-20.0 Serum Glucose 106 # 74-106 mg/dL Calcium Level 7.3 L 8.7-10.4 mg/dL Total Bilirubin < 0.2 L 0.2-1.0 mg/dL Aspartate Amino Transferase (AST) 43 H 13-40 U/L Alanine Aminotransferase (ALT) 39 7-40 U/L Alkaline Phosphatase 114 46-116 U/L Total Protein 5.8 5.7-8.2 g/dL Albumin 3.2 3.2-4.8 g/dL Creatine Kinase 699 H 46-171 U/L Troponin I High Sensitivity 18 </=54 ng/L Urine Color Light-yellow Yellow Urine Clarity Turbid H Clear Urine pH 6.0 5.0-9.0 Urine Specific [place] 1.014 1.001-1.035 Urine Protein 3+ H Negative Urine Ketones Negative Negative Urine Blood Negative Negative /uL Urine Nitrite Negative Negative Urine Bilirubin Negative Negative Urine Urobilinogen Normal Negative mg/dL Urine Leukocyte Esterase Negative Negative /uL Urine RBC 2 0 - 3 /hpf Urine Microscopic WBC < 1 0-3 /HPF Urine Squamous Epithelial Cells None seen <5 /hpf Urine Bacteria None seen None Seen /hpf Urine Yeast (Budding) Occasional None Seen /hpf Urine Glucose 3+ H Normal mg/dL Test 04/12/25 14:00 Range/Units Lactic Acid Level 1.0 0.4-2.0 mmol/L B-Type Natriuretic Peptide 1231.62 0-100 pg/mL Assessment This is a 65-year-old male with past medical history of hypertension, CKD, diabetes, dyslipidemia brought in due to altered mental status and shortness of breaths. JUNAID on CKD, requiring initiation of intermittent hemodialysis Congestive heart failure Encephalopathy Diabetes type 2 Hypertension Dyslipidemia Obesity Hyperkalemia Metabolic acidosis Anemia of chronic kidney disease Plan/recommendation: (Dr. Chu) * Closely monitor fluid and electrolytes * Avoid nephrotoxic medication * Consents for tunneled IJ catheter and hemodialysis * IV Lasix 80 mg daily * Consulted Radiology for placement of tunneled catheter * Hemodialysis tomorrow * Strict I&Os * Renal diet * Social service for outpatient hemodialysis chair time * We will follow up with the patient Thank you for giving us the opportunity due to take care of your patient. Please call back if you have any questions/concerns. Patient seen and examined by myself with the medicine resident today on rounds, I agree with the assessment and plan Plan discussed with: Patient, Other (RN) MYRON ARNDT Apr 13, 2025 10:48 KYLER CHU MD Apr 13, 2025 11:26
[2025-04-13 11:44] LABS: Magnesium 2.1 mg/dL (1.6-2.6)
[2025-04-13 12:18] LABS: Iron 13.0 ug/dL (65-175); Total Iron Binding Capacity 222.0 ug/dL (250-425)
[2025-04-13] MEDS: ALBUTEROL SULF 2.5 MG/0.5ML(0.5%) NEB SOLN NEB SCH (12:29)
[2025-04-13] MEDS: IPRATROPIUM BROM 0.5 MG/2.5ML INH SOL NEB SCH (12:29)
[2025-04-13 12:30] VITALS: PULSE 57; RESP 18; O2SAT 94
[2025-04-13 12:38] VITALS: PULSE 59; RESP 17; O2SAT 96
[2025-04-13 12:43] LABS: Hepatitis B Surface Antigen Negative (Negative)
--- NOTE | 2025-04-13 12:44 | DVHPN2 ---
Reviewed: H&P Changes from previous H/P or p: No Changes General: Per HPI Objective Vitals Vital Signs Date Time Temp Pulse Resp B/P (MAP) Pulse Ox O2 Delivery O2 Flow Rate FiO2 04/13/25 12:38 59 17 96 04/13/25 12:30 Simple Mask* 6 50 04/13/25 10:00 161/67 (98) 04/13/25 08:00 97.5 97.5 Intake/Output Intake and Output 04/13/25 07:00 Intake Total 1400 ml Output Total 900 ml Balance 500 ml Intake IV Total 1400 ml Output Urine Total 900 ml Exam GEN: Ill-appearing, obese patient, alert, oriented only to self, HEENT: NC/AT; MMM. CV: RRR, no m/r/g. LUNGS: CTAB, no w/r/c. ABD: Soft, NT/ND, NBS, no masses or organomegaly. EXT: skin Warm, well perfused. no rashes. No clubbing, cyanosis, or edema. Medications Current Medications Medications Dose Ordered Sig/Lurdes Route Start Time Stop Time Status Last Admin Dose Admin Hydralazine HCl 10 mg Q6HP PRN IV 04/12/25 19:45 04/13/25 02:17 10 MG Diagnostic Test (Pha) 1 strip Q6HR 04/13/25 00:00 04/13/25 05:36 1 STRIP Insulin Human Regular Q6HR SC 04/13/25 00:00 Dextrose 50 ml UD PRN IV 04/12/25 19:45 Ondansetron HCl 4 mg Q4HP PRN IV 04/12/25 19:45 Nitroglycerin 0.4 mg Q5MINP PRN SL 04/12/25 19:45 Morphine Sulfate 2 mg Q30M PRN IV 04/12/25 19:45 Ipratropium [employer] 0.5 mg Q6HWA NEB 04/13/25 12:00 04/13/25 12:29 0.5 MG Albuterol 2.5 mg Q6HWA NEB 04/13/25 12:00 04/13/25 12:29 2.5 MG Furosemide 80 mg DAILY IV 04/14/25 10:00 Laboratory Results Laboratory Tests 04/13/25 04:30 Chemistry Test 04/12/25 14:00 04/12/25 16:55 04/13/25 04:30 Albumin 3.5 g/dL (3.2-4.8) 3.2 g/dL (3.2-4.8) Calcium Level 7.0 mg/dL (8.7-10.4) L 7.2 mg/dL (8.7-10.4) L 7.3 mg/dL (8.7-10.4) L Total Protein 5.9 g/dL (5.7-8.2) 5.8 g/dL (5.7-8.2) Magnesium Level 2.1 mg/dL (1.6-2.6) Phosphorus Level 6.9 mg/dL (2.4-5.1) H Cardiac Markers Test 04/12/25 14:00 B-Type Natriuretic Peptide 1231.62 pg/mL (0-100) LFT Test 04/12/25 14:00 04/13/25 04:30 Alanine Aminotransferase (ALT) 47 U/L (7-40) H 39 U/L (7-40) Alkaline Phosphatase 142 U/L (46-116) H 114 U/L (46-116) Aspartate Amino Transferase (AST) 56 U/L (13-40) H 43 U/L (13-40) H Total Bilirubin < 0.2 mg/dL (0.2-1.0) L < 0.2 mg/dL (0.2-1.0) L Urinalysis Test 04/12/25 15:13 Urine Color Light-yellow (Yellow) Urine Clarity Turbid (Clear) H Urine pH 6.0 (5.0-9.0) Urine Specific [place] 1.014 (1.001-1.035) Urine Protein 3+ (Negative) H Urine Ketones Negative (Negative) Urine Blood Negative /uL (Negative) Urine Nitrite Negative (Negative) Urine Bilirubin Negative (Negative) Urine Urobilinogen Normal mg/dL (Negative) Urine Leukocyte Esterase Negative /uL (Negative) Urine RBC 2 /hpf (0 - 3) Urine Microscopic WBC < 1 /HPF (0-3) Urine Squamous Epithelial Cells None seen /hpf (<5) Urine Bacteria None seen /hpf (None Seen) Urine Yeast (Budding) Occasional /hpf (None Urine Glucose 3+ mg/dL (Normal) H Blood Gas Results Test 04/12/25 19:51 04/13/25 09:47 Arterial Blood pH 7.287 (7.350-7.450) 7.294 (7.350-7.450) FiO2 % 28.0 40.0 Labs and/or images reviewed: Labs reviewed by me, Image(s) reviewed by me Assessment/Plan Assessment/Plan 65-year-old male presents for evaluation of altered mental status. Patient was noted to be E come progressively more lethargic over the past few day by family members. Patient is currently lethargic and oriented x3. Patient denies chest pain. Reports mild shortness for breath. No unilateral weakness or slurred speech noted. Past Medical History Hypertension, chronic kidney disease, diabetes mellitus, dyslipidemia 04/13: 65-year-old male history CKD hypertension diabetes dyslipidemia, presenting with ALOC. Lethargic were few days. On presentation has acidosis 7.2, chronic anemia 8.6., hyperkalemia 6.0, creatinine 6, BUN azotemia 69, anion gap acidosis, mild transaminitis, BNP elevated 1231. Progression of CKD, likely uremic encephalopathy, head CT benign, renal nephrology consulted plan for starting dialysis. Also having bradycardia, tachypnea, on 6 L mask, hypotensive 170s,. Continuing trial of Lasix 80 IV daily, sliding scale for diabetes,. Diagnosis: Acute uremic encephalopathy Acute metabolic encephalopathy, due to above Hypokalemia Hypervolemia, diuretic resistant Mild transaminitis Azotemia Anemia, chronic from a normocytic, likely anemia of chronic renal disease Acidosis Anion gap metabolic acidosis Bradycardia Tachypnea Hypertensive crisis History of hypertension CKD Diabetes mellitus type 2 Dyslipidemia Plan: Trial Lasix 80 IV daily Nephrology consult Order for IR tunneled catheter insertion Trial BiPAP Per nephrology, plan for dialysis Continue other home medications NPO status Fall risk Bedrest continues Oxygen maintain saturation more than 90%, RT to titrate Haldol for agitation prn , avoiding any use of benzodiazepines or respiratory sedatives Tele Full code Plan discussed with: Patient Date of Service: Apr 13, 2025 Billing Provider: LUNA ROBERTSON MD Common Visit Codes: [id number] INP/OBS CARE(HIGH) LUNA ROBERTSON MD Apr 13, 2025 12:44
[2025-04-13] MEDS: FUROSEMIDE 100 MG/10ML VIAL IV ONE (12:56)
[2025-04-13 13:01] VITALS: BP 151/59; PULSE 59; RESP 17; O2SAT 94
[2025-04-13 13:09] LABS: Hepatitis C Antibody Negative (Negative)
--- NOTE | 2025-04-13 13:36 | DVH ---
INDICATION: JUNAID TECHNIQUE: Multiple real-time sonographic images of the kidneys and bladder were obtained. COMPARISON: None FINDINGS: The right kidney measures 11 cm in length, which is normal in size. There is normal echogenicity of the right kidney. No hydronephrosis. The left kidney measures 10 cm in length, which is normal in size. There is normal echogenicity of the left kidney. No hydronephrosis. No large intraluminal masses are seen in the bladder. IMPRESSION: 1. Normal sonographic appearance of the kidneys. No hydronephrosis. 2. Small right pleural effusion
[2025-04-13 13:38] VITALS: BP 151/59; PULSE 58; O2SAT 95
[2025-04-13 13:52] LABS: Protein, Urine 519.3 mg/dL (1-14)
[2025-04-13 13:54] LABS: INR 1.18 (0.9-1.15); Partial Thromboplastin Time 33.3 SEC (24.5-34.5); Prothrombin Time 12.3 sec (9.3-11.8)
[2025-04-13 15:33] LABS: Base Excess -8.8 mmol/L (-2.0-3.0)
[2025-04-13 18:43] VITALS: BP 162/82; PULSE 63; PULSE 65; RESP 20; O2SAT 95; O2SAT 97
[2025-04-14] VITALS (7 sets, daily range): PULSE 64–81; RESP 13–18; O2SAT 94–98
[2025-04-14 04:37] LABS: Hemoglobin 8.6 g/dL (13.5-17.5)
[2025-04-14 04:39] LABS: Hematocrit 27.2 % (41.0-53.0); Mean Corpuscular Hemoglobin 25.2 pg (28.0-32.0); Mean Corpuscular Volume 80.2 fL (80.0-100.0); Nucleated Red Blood Cells % 0.1 %
[2025-04-14 04:59] LABS: Alanine Aminotransferase 30 U/L (7-40); Alkaline Phosphatase 93 U/L (46-116); Anion Gap 15 (5-15); BUN/Creatinine Ratio 10.7 (10.0-20.0); Glucose 88 mg/dL (74-106); Potassium 4.8 mmol/L (3.5-5.1); Sodium 144 mmol/L (136-145)
[2025-04-14 05:14] LABS: Albumin 2.9 g/dL (3.2-4.8); Bilirubin, Total 0.2 mg/dL (0.2-1.0); Blood Urea Nitrogen 64 mg/dL (9-23); Calcium 7.4 mg/dL (8.7-10.4); Carbon Dioxide 18 mmol/L (20-31); Chloride 111 mmol/L (98-107); Total Protein 5.4 g/dL (5.7-8.2)
[2025-04-14] MEDS: SODIUM CHL 0.9% 1000 ML BAG XX ONE (07:00)
--- NOTE | 2025-04-14 08:47 | DVHPN2 ---
Progress Note Date Seen: Apr 14, 2025 Resident Creating Document: MYRON ARNDT RESDIENT Medical Necessity Reason Pt with a Central, PICC or Fol: Yes Subjective Review of Systems Patient seen and Examined at the bedside. Patient is feeling better since admission. Other Systems: Patient seen and examined by myself today in follow-up with the medicine resident, I agree with the assessment and plan Patient examined hemodialysis, blood pressure stable Objective vital signs Vital Sign Date Time Temp Pulse Resp B/P (MAP) Pulse Ox O2 Delivery O2 Flow Rate FiO2 04/14/25 07:00 64 15 167/65 (99) 97 04/14/25 03:30 97.5 97.5 04/13/25 18:43 Simple Mask* 6 50 Total Intake and Output 04/13/25 04/13/25 04/14/25 15:00 23:00 07:00 Output Total 550 ml 850 ml 800 ml Balance -550 ml -850 ml -800 ml medications Current Medications Medications Dose Ordered Sig/Lurdes Route Start Time Stop Time Status Last Admin Dose Admin Hydralazine HCl 10 mg Q6HP PRN IV 04/12/25 19:45 04/13/25 22:02 10 MG Diagnostic Test (Pha) 1 strip Q6HR 04/13/25 00:00 04/14/25 06:13 1 STRIP Insulin Human Regular Q6HR SC 04/13/25 00:00 Dextrose 50 ml UD PRN IV 04/12/25 19:45 Ondansetron HCl 4 mg Q4HP PRN IV 04/12/25 19:45 Nitroglycerin 0.4 mg Q5MINP PRN SL 04/12/25 19:45 Morphine Sulfate 2 mg Q30M PRN IV 04/12/25 19:45 Ipratropium [place] 0.5 mg Q6HWA NEB 04/13/25 12:00 04/13/25 18:42 0.5 MG Albuterol 2.5 mg Q6HWA NEB 04/13/25 12:00 04/13/25 18:43 2.5 MG Furosemide 80 mg DAILY IV 04/14/25 10:00 Examination General Appearance: Alert, Oriented X3, Cooperative, in severe respiratory distress HEENT: Atraumatic, PERRLA, EOMI, Mucous membrane moist/pink Respiratory: Bilateral crackles Cardiovascular: Regular rate, Normal S1, Normal S2, No murmurs, no chest wall tenderness Abdominal: Normal bowel sounds, Soft, No tenderness, No hepatospenomegaly, No masses Extremities: Bilateral grade 2 pedal edema Skin: No rashes, No breakdown, No significant lesion Neuro: Normal gait, Normal speech, Strength at 5/5 X4 ext, Normal tone, Sensation intact, Cranial nerves 3-12 NL, Reflexes 2+ Psych/Mental Status: Mental status NL, Mood NL Examination: LUNGS:Normal, CVS:Normal, MSK:Normal laboratory and microbiology Laboratory Tests 04/14/25 04:02 Test 04/14/25 04:02 Range/Units Serum Glucose 88 74-106 mg/dL Microbiology Date/Time Source Procedure Growth Status 04/12/25 14:13 Blood Blood Culture - Preliminary NO GROWTH AFTER 24 HOURS OF INCUBATION. Resulted Labs and/or images reviewed: Labs reviewed by me, Image(s) reviewed by me Problem List/Assessment/Plan Problem List/Assessment/Plan This is a 65-year-old male with past medical history of hypertension, CKD, diabetes, dyslipidemia brought in due to altered mental status and shortness of breaths. JUNAID on CKD, requiring initiation of intermittent hemodialysis Congestive heart failure Encephalopathy Diabetes type 2 Nephrotic syndrome secondary to diabetic nephropathy Hypertension Dyslipidemia Obesity Hyperkalemia Metabolic acidosis Anemia of chronic kidney disease Plan/recommendation: (Dr. Chu) * Continue with UF 1-2 L as tolerated, slow 1st hemodialysis * Epogen 28973 subQ with hemodialysis * IV Lasix 80 mg daily * Hemodialysis again tomorrow * Strict I&Os * Renal diet * Social service for outpatient hemodialysis chair time * We will follow up with the patient Thank you for giving us the opportunity due to take care of your patient. Please call back if you have any questions/concerns. Plan discussed with: Patient, Other (RN) My Orders My Orders Orders - MYRON ARNDT Procedure Category Date Status Time Kidney US 04/13/25 Resulted 10:27 Furosemide Injection PHA 04/14/25 In Process (Lasix Injection) 10:00 * Radiologist Consult CONS 04/13/25 Transmitted 10:27 Strict I & O [facility] 04/13/25 In Process 10:45 MYRON ARNDT Apr 14, 2025 08:46 KYLER CHU MD Apr 14, 2025 13:52
[2025-04-14] MEDS: FUROSEMIDE 100 MG/10ML VIAL IV SCH (10:13)
--- NOTE | 2025-04-14 10:33 | DVHPN2 ---
Reviewed: H&P Changes from previous H/P or p: No Changes General: Per HPI Objective Vitals Vital Signs Date Time Temp Pulse Resp B/P (MAP) Pulse Ox O2 Delivery O2 Flow Rate FiO2 04/14/25 10:13 201/77 04/14/25 09:30 66 20 95 04/14/25 09:00 Nasal Cannula* 5 40 04/14/25 07:30 98.0 98.0 Intake/Output Intake and Output 04/14/25 07:00 Output Total 2200 ml Balance -2200 ml Output Urine Total 2200 ml Exam GEN: Ill-appearing, obese patient, alert, oriented only to self, HEENT: NC/AT; MMM. CV: RRR, no m/r/g. LUNGS: CTAB, no w/r/c. ABD: Soft, NT/ND, NBS, no masses or organomegaly. EXT: skin Warm, well perfused. no rashes. No clubbing, cyanosis, or edema. Medications Current Medications Medications Dose Ordered Sig/Lurdes Route Start Time Stop Time Status Last Admin Dose Admin Diagnostic Test (Pha) 1 strip Q6HR 04/13/25 00:00 04/14/25 06:13 1 STRIP Insulin Human Regular Q6HR SC 04/13/25 00:00 Dextrose 50 ml UD PRN IV 04/12/25 19:45 Ondansetron HCl 4 mg Q4HP PRN IV 04/12/25 19:45 Nitroglycerin 0.4 mg Q5MINP PRN SL 04/12/25 19:45 Morphine Sulfate 2 mg Q30M PRN IV 04/12/25 19:45 Ipratropium [place] 0.5 mg Q6HWA NEB 04/13/25 12:00 04/14/25 09:37 0.5 MG Albuterol 2.5 mg Q6HWA NEB 04/13/25 12:00 04/14/25 09:37 2.5 MG Furosemide 80 mg DAILY IV 04/14/25 10:00 04/14/25 10:13 80 MG Iron Sucrose 110 ml @ 110 mls/hr DAILY@1200 IV 04/14/25 12:00 04/18/25 12:59 Hydralazine HCl 10 mg Q6HP PRN IV 04/14/25 10:15 Laboratory Results Laboratory Tests 04/14/25 04:02 Chemistry Test 04/14/25 04:02 Albumin 2.9 g/dL (3.2-4.8) L Calcium Level 7.4 mg/dL (8.7-10.4) L Total Protein 5.4 g/dL (5.7-8.2) L Coagulation Test 04/13/25 13:14 Prothrombin Time 12.3 sec (9.3-11.8) H Prothrombin Time INR 1.18 (0.9-1.15) H Activated Partial Thromboplast Time 33.3 SEC (24.5-34.5) LFT Test 04/14/25 04:02 Alanine Aminotransferase (ALT) 30 U/L (7-40) Alkaline Phosphatase 93 U/L (46-116) Aspartate Amino Transferase (AST) 25 U/L (13-40) Total Bilirubin 0.2 mg/dL (0.2-1.0) Urinalysis Test 04/12/25 15:13 Urine Color Light-yellow (Yellow) Urine Clarity Turbid (Clear) H Urine pH 6.0 (5.0-9.0) Urine Specific [place] 1.014 (1.001-1.035) Urine Protein 3+ (Negative) H Urine Ketones Negative (Negative) Urine Blood Negative /uL (Negative) Urine Nitrite Negative (Negative) Urine Bilirubin Negative (Negative) Urine Urobilinogen Normal mg/dL (Negative) Urine Leukocyte Esterase Negative /uL (Negative) Urine RBC 2 /hpf (0 - 3) Urine Microscopic WBC < 1 /HPF (0-3) Urine Squamous Epithelial Cells None seen /hpf (<5) Urine Bacteria None seen /hpf (None Seen) Urine Yeast (Budding) Occasional /hpf (None Urine Creatinine 80.27 mg/dL (30.0-125.0) Urine Protein/Creatinine Ratio 6.47 Urine Sodium 42 mmol/L (40-220) Urine Glucose 3+ mg/dL (Normal) H Urine Total Protein 519.3 mg/dL (1-14) H Blood Gas Results Test 04/13/25 15:29 Arterial Blood pH 7.282 (7.350-7.450) FiO2 % 40.0 Microbiology Microbiology Date/Time Source Procedure Growth Status 04/12/25 14:13 Blood Blood Culture - Preliminary NO GROWTH AFTER 24 HOURS OF INCUBATION. Resulted Labs and/or images reviewed: Labs reviewed by me, Image(s) reviewed by me Assessment/Plan Assessment/Plan 65-year-old male presents for evaluation of altered mental status. Patient was noted to be E come progressively more lethargic over the past few day by family members. Patient is currently lethargic and oriented x3. Patient denies chest pain. Reports mild shortness for breath. No unilateral weakness or slurred speech noted. Past Medical History Hypertension, chronic kidney disease, diabetes mellitus, dyslipidemia 04/13: 65-year-old male history CKD hypertension diabetes dyslipidemia, presenting with ALOC. Lethargic were few days. On presentation has acidosis 7.2, chronic anemia 8.6., hyperkalemia 6.0, creatinine 6, BUN azotemia 69, anion gap acidosis, mild transaminitis, BNP elevated 1231. Progression of CKD, likely uremic encephalopathy, head CT benign, renal nephrology consulted plan for starting dialysis. Also having bradycardia, tachypnea, on 6 L mask, hypotensive 170s,. Continuing trial of Lasix 80 IV daily, sliding scale for diabetes,. 04/14: Patient continues to protect airway, yesterday did BiPAP trial which did not improve the acidosis. Acidosis likely from uremic. Patient A&O times 3-4, family at bedside supportive. Continue for plan for IR tunnel cath and then dialysis, we will re-evaluate thereafter. On eval patient is is excessively fatigued and sleepy, no pericardial rub, likely effects of uremia. Can deescalate care to tele after dialysis. Diagnosis: Acute uremic encephalopathy Acute metabolic encephalopathy, due to above Hypokalemia Hypervolemia, diuretic resistant Mild transaminitis Azotemia Anemia, chronic from a normocytic, likely anemia of chronic renal disease Acidosis Anion gap metabolic acidosis Bradycardia Tachypnea Hypertensive crisis History of hypertension CKD Diabetes mellitus type 2 Dyslipidemia Plan: Trial Lasix 80 IV daily Nephrology consult Order for IR tunneled catheter insertion Trial BiPAP Per nephrology, plan for dialysis Continue other home medications NPO status Fall risk Bedrest continues Oxygen maintain saturation more than 90%, RT to titrate Haldol for agitation prn , avoiding any use of benzodiazepines or respiratory sedatives Tele Full code Plan discussed with: Patient My Orders Orders - LUNA ROBERTSON MD Procedure Category Date Status Time BIPAP RT 04/13/25 Logged 13:08 Abg W/ Co-Ox RT 04/13/25 Logged 15:19 Hydralazine Injection PHA 04/14/25 In Process (Apresoline Inject 10:15 Date of Service: Apr 14, 2025 Billing Provider: LUNA ROBERTSON MD Common Visit Codes: [id number] CARE 30-74 MIN LUNA ROBERTSON MD Apr 14, 2025 10:33
[2025-04-14] MEDS: IRON SUCROSE COMPLEX 110 ML IV SCH (12:03)
[2025-04-14] MEDS: HEPARIN SODIUM (PORCINE) 5000 UNITS/ML 1ML VIAL ONE (14:19)
[2025-04-14] MEDS: fentaNYL CITRATE 100 MCG/2 ML VL ONE (14:19)
[2025-04-14] MEDS: LIDOCAINE 2%HCL (LOCAL ANESTH.) INJ 20ML MDV ONE (14:20)
[2025-04-14] MEDS: MIDAZOLAM HCL 2MG/2ML 2ml VIAL (1mg/ml) ONE (14:20)
[2025-04-14] MEDS: ceFAZolin 1GM/50ML 50 ML IV ONE (14:45)
--- NOTE | 2025-04-14 15:30 | DVH ---
XY Insertion of Venous Cath, HISTORY: HD CATH PL PROCEDURE: Informed consent was obtained. The patient was placed supine on the interventional table. A limited localization ultrasound of the right neck base was obtained. The right neck base and upper chest were prepped with chlorhexidine which was allowed to dry and draped in the usual sterile fashion. 1 gram of Ancef was given. Time out was performed. IV sedation was administered. The skin and the soft tissues were infiltrated with 1% Lidocaine. With real-time ultrasound guidance, the internal jugular vein was accessed with a micropuncture kit, and an image documenting patency was recorded to PACS. A subcutaneous tunneled tract was created from the right upper chest to the venotomy site. A 14.5 [address] [place] [address], 19 cm long hemodialysis catheter was advanced through the tunneled tract. Fluoroscopy was used to advance a guidewire through the internal jugular vein into the inferior vena cava. Following serial dilatation, a 15 [place] peel-away sheath was introduced, though which was advanced the catheter into the right atrium. The catheter tip position was confirmed with fluoroscopy. There was satisfactory flow in both lumens. The catheter lumens were flushed with saline and heparin was left indwelling in the catheter. A post-procedure image of the chest was obtained. The neck incision site was closed with a Dermabond and dressed sterilely. The catheter was sutured at the skin surface and exit site also dressed sterilely. No immediate complication was identified. DAP 195 FLUOROSCOPY TIME: 1.1 minutes. SEDATION: Dr. Juancarlos Stanley was personally responsible for the administration of moderate sedation during the procedure performed, including the use of an independent trained observer who had no other duties during the procedure. The drugs utilized were IV fentanyl and versed (see nursing log for details). The total time of supervision by the attending physician was approximately 30 minutes. FINDINGS: Widely patent right IJV. Post procedure image demonstrates smooth course of the hemodialysis catheter with the tip in the right atrium. IMPRESSION: Successful placement of 14.5 [place] [place] [address], 19 cm long hemodialysis catheter through right internal jugular vein. Plan: Please contact IR for removal when no longer needed.
[2025-04-14] MEDS: hydrALAZINE HCL 20 MG/ML VL IV PRN (18:32)
[2025-04-14] MEDS: EPOETIN ALFA-EPBX 10,000 UNIT/1ML VIAL SC ONE (21:12)
[2025-04-15] VITALS (9 sets, daily range): BP systolic 173; BP diastolic 68; PULSE 66–70; RESP 12–18; TEMP 97.5; O2SAT 95–99
[2025-04-15] MEDS: hydrALAZINE HCL 20 MG/ML VL IV ONE (00:32)
[2025-04-15 04:55] LABS: Hematocrit 29.6 % (41.0-53.0); Hemoglobin 9.1 g/dL (13.5-17.5); Mean Corpuscular Hemoglobin 25.4 pg (28.0-32.0); Mean Corpuscular Volume 82.4 fL (80.0-100.0); Nucleated Red Blood Cells % 0.2 %
[2025-04-15 05:11] LABS: Alanine Aminotransferase 23 U/L (7-40); Alkaline Phosphatase 90 U/L (46-116); Anion Gap 14 (5-15); BUN/Creatinine Ratio 8.6 (10.0-20.0); Carbon Dioxide 21 mmol/L (20-31); Glucose 103 mg/dL (74-106); Potassium 3.9 mmol/L (3.5-5.1); Sodium 143 mmol/L (136-145)
[2025-04-15 05:18] LABS: Albumin 3.0 g/dL (3.2-4.8); Bilirubin, Total 0.2 mg/dL (0.2-1.0); Blood Urea Nitrogen 38 mg/dL (9-23); Calcium 7.4 mg/dL (8.7-10.4); Chloride 108 mmol/L (98-107); Total Protein 5.6 g/dL (5.7-8.2)
[2025-04-15] MEDS: LISINOPRIL 20 MG TAB PO SCH (10:08)
--- NOTE | 2025-04-15 10:32 | DVHPN2 ---
Progress Note Date Seen: Apr 15, 2025 Medical Necessity Reason Pt with a Central, PICC or Fol: Yes Subjective Patient reports: No new complaints Other Systems: Patient seen and examined by myself today in follow-up Patient examined hemodialysis, blood pressure stable Objective vital signs Vital Sign Date Time Temp Pulse Resp B/P (MAP) Pulse Ox O2 Delivery O2 Flow Rate FiO2 04/15/25 10:09 172/71 04/15/25 08:45 66 12 97 Nasal Cannula* 5 40 04/15/25 08:44 97.5 97.5 Total Intake and Output 04/14/25 04/14/25 04/15/25 14:59 22:59 06:59 Output Total 2500 ml 900 ml Balance -2500 ml -900 ml medications Current Medications Medications Dose Ordered Sig/Lurdes Route Start Time Stop Time Status Last Admin Dose Admin Diagnostic Test (Pha) 1 strip Q6HR 04/13/25 00:00 04/15/25 06:05 1 STRIP Insulin Human Regular Q6HR SC 04/13/25 00:00 Dextrose 50 ml UD PRN IV 04/12/25 19:45 Ondansetron HCl 4 mg Q4HP PRN IV 04/12/25 19:45 Nitroglycerin 0.4 mg Q5MINP PRN SL 04/12/25 19:45 Morphine Sulfate 2 mg Q30M PRN IV 04/12/25 19:45 Ipratropium [place] 0.5 mg Q6HWA [facility] 04/13/25 12:00 04/14/25 20:30 0.5 MG Albuterol 2.5 mg Q6HWA [facility] 04/13/25 12:00 04/14/25 20:30 2.5 MG Furosemide 80 mg DAILY IV 04/14/25 10:00 04/15/25 10:07 80 MG Iron Sucrose 110 ml @ 110 mls/hr DAILY@1200 IV 04/14/25 12:00 04/18/25 12:59 04/14/25 12:03 110 MLS/HR Hydralazine HCl 10 mg Q6HP PRN IV 04/14/25 10:15 04/15/25 02:51 10 MG Amlodipine Besylate 10 mg DAILY PO 04/15/25 10:00 04/15/25 10:09 10 MG Lisinopril 40 mg DAILY PO 04/15/25 10:00 04/15/25 10:08 40 MG Examination: LUNGS:Normal, CVS:Normal, MSK:Abnormal laboratory and microbiology Laboratory Tests 04/15/25 04:26 Test 04/15/25 04:26 Range/Units Serum Glucose 103 74-106 mg/dL Microbiology Date/Time Source Procedure Growth Status 04/12/25 14:13 Blood Blood Culture - Preliminary NO GROWTH AFTER 48 HOURS OF INCUBATION. Resulted Problem List/Assessment/Plan Problem List/Assessment/Plan This is a 65-year-old male with past medical history of hypertension, CKD, diabetes, dyslipidemia brought in due to altered mental status and shortness of breaths. JUNAID on CKD, requiring initiation of intermittent hemodialysis Congestive heart failure Encephalopathy Diabetes type 2 Nephrotic syndrome secondary to diabetic nephropathy Hypertension Dyslipidemia Obesity Hyperkalemia Metabolic acidosis Anemia of chronic kidney disease Hyperphosphatemia Recommendation * Continue with UF to 3 L as tolerated * Epogen 29315 subQ with hemodialysis * IV Lasix 80 mg daily * Calcium acetate 1334 mg p.o. t.i.d. with meals * Strict I&Os * Renal diet * Social service for outpatient hemodialysis chair time * We will follow up with the patient Thank you for giving us the opportunity due to take care of your patient. Please call back if you have any questions/concerns. Plan discussed with: Patient My Orders My Orders Orders - KYLER CHU MD Procedure Category Date Status Time Hemodialysis Orders ORDERS 04/15/25 Transmitted 07:00 Dialysis Nursing [facility] 04/15/25 In Process Message 07:00 Document Fluid Input [facility] 04/15/25 In Process And Outpu 07:00 Epoetin Brian-Epbx PHA 04/15/25 In Process (Retacrit) 21:00 KYLER CHU MD Apr 15, 2025 10:32
--- NOTE | 2025-04-15 13:37 | DVHPN2 ---
Reviewed: H&P Changes from previous H/P or p: No Changes General: Per HPI Objective Vitals Vital Signs Date Time Temp Pulse Resp B/P (MAP) Pulse Ox O2 Delivery O2 Flow Rate FiO2 04/15/25 13:15 70 18 160/65 (96) 94 04/15/25 12:44 Nasal Cannula* 5 40 04/15/25 08:44 97.5 97.5 Intake/Output Intake and Output 04/15/25 07:00 Output Total 3400 ml Balance -3400 ml Output Urine Total 3400 ml Exam GEN: Ill-appearing, obese patient, alert, oriented only to self, HEENT: NC/AT; MMM. CV: RRR, no m/r/g. LUNGS: CTAB, no w/r/c. ABD: Soft, NT/ND, NBS, no masses or organomegaly. EXT: skin Warm, well perfused. no rashes. No clubbing, cyanosis, or edema. Medications Current Medications Medications Dose Ordered Sig/Lurdes Route Start Time Stop Time Status Last Admin Dose Admin Diagnostic Test (Pha) 1 strip Q6HR 04/13/25 00:00 04/15/25 13:12 1 STRIP Insulin Human Regular Q6HR SC 04/13/25 00:00 Dextrose 50 ml UD PRN IV 04/12/25 19:45 Ondansetron HCl 4 mg Q4HP PRN IV 04/12/25 19:45 Nitroglycerin 0.4 mg Q5MINP PRN SL 04/12/25 19:45 Morphine Sulfate 2 mg Q30M PRN IV 04/12/25 19:45 Ipratropium [place] 0.5 mg Q6HWA NEB 04/13/25 12:00 04/15/25 12:44 0.5 MG Albuterol 2.5 mg Q6HWA NEB 04/13/25 12:00 04/15/25 12:44 2.5 MG Furosemide 80 mg DAILY IV 04/14/25 10:00 04/15/25 10:07 80 MG Iron Sucrose 110 ml @ 110 mls/hr DAILY@1200 IV 04/14/25 12:00 04/18/25 12:59 04/14/25 12:03 110 MLS/HR Hydralazine HCl 10 mg Q6HP PRN IV 04/14/25 10:15 04/15/25 02:51 10 MG Amlodipine Besylate 10 mg DAILY PO 04/15/25 10:00 04/15/25 10:09 10 MG Lisinopril 40 mg DAILY PO 04/15/25 10:00 04/15/25 10:08 40 MG Calcium Acetate 1,334 mg TIDWMEALS PO 04/15/25 12:00 Laboratory Results Laboratory Tests 04/15/25 04:26 Chemistry Test 04/15/25 04:26 Albumin 3.0 g/dL (3.2-4.8) L Calcium Level 7.4 mg/dL (8.7-10.4) L Total Protein 5.6 g/dL (5.7-8.2) L LFT Test 04/15/25 04:26 Alanine Aminotransferase (ALT) 23 U/L (7-40) Alkaline Phosphatase 90 U/L (46-116) Aspartate Amino Transferase (AST) 22 U/L (13-40) Total Bilirubin 0.2 mg/dL (0.2-1.0) Urinalysis Test 04/12/25 15:13 Urine Color Light-yellow (Yellow) Urine Clarity Turbid (Clear) H Urine pH 6.0 (5.0-9.0) Urine Specific [place] 1.014 (1.001-1.035) Urine Protein 3+ (Negative) H Urine Ketones Negative (Negative) Urine Blood Negative /uL (Negative) Urine Nitrite Negative (Negative) Urine Bilirubin Negative (Negative) Urine Urobilinogen Normal mg/dL (Negative) Urine Leukocyte Esterase Negative /uL (Negative) Urine RBC 2 /hpf (0 - 3) Urine Microscopic WBC < 1 /HPF (0-3) Urine Squamous Epithelial Cells None seen /hpf (<5) Urine Bacteria None seen /hpf (None Seen) Urine Yeast (Budding) Occasional /hpf (None Urine Creatinine 80.27 mg/dL (30.0-125.0) Urine Protein/Creatinine Ratio 6.47 Urine Sodium 42 mmol/L (40-220) Urine Glucose 3+ mg/dL (Normal) H Urine Total Protein 519.3 mg/dL (1-14) H Microbiology Microbiology Date/Time Source Procedure Growth Status 04/12/25 14:13 Blood Blood Culture - Preliminary NO GROWTH AFTER 48 HOURS OF INCUBATION. Resulted Labs and/or images reviewed: Labs reviewed by me, Image(s) reviewed by me Assessment/Plan Assessment/Plan 65-year-old male presents for evaluation of altered mental status. Patient was noted to be E come progressively more lethargic over the past few day by family members. Patient is currently lethargic and oriented x3. Patient denies chest pain. Reports mild shortness for breath. No unilateral weakness or slurred speech noted. Past Medical History Hypertension, chronic kidney disease, diabetes mellitus, dyslipidemia 04/13: 65-year-old male history CKD hypertension diabetes dyslipidemia, presenting with ALOC. Lethargic were few days. On presentation has acidosis 7.2, chronic anemia 8.6., hyperkalemia 6.0, creatinine 6, BUN azotemia 69, anion gap acidosis, mild transaminitis, BNP elevated 1231. Progression of CKD, likely uremic encephalopathy, head CT benign, renal nephrology consulted plan for starting dialysis. Also having bradycardia, tachypnea, on 6 L mask, hypotensive 170s,. Continuing trial of Lasix 80 IV daily, sliding scale for diabetes,. 04/14: Patient continues to protect airway, yesterday did BiPAP trial which did not improve the acidosis. Acidosis likely from uremic. Patient A&O times 3-4, family at bedside supportive. Continue for plan for IR tunnel cath and then dialysis, we will re-evaluate thereafter. On eval patient is is excessively fatigued and sleepy, no pericardial rub, likely effects of uremia. Can deescalate care to tele after dialysis. 04/15: Nephrology monitoring, plan for outpatient dialysis, we will put social order for set up for chair time. Continuing monitoring, daily CMP. Nephrology following appreciate recommendations. Diagnosis: Acute uremic encephalopathy Acute metabolic encephalopathy, due to above Hypokalemia Hypervolemia, diuretic resistant Mild transaminitis Azotemia Anemia, chronic from a normocytic, likely anemia of chronic renal disease Acidosis Anion gap metabolic acidosis Bradycardia Tachypnea Hypertensive crisis History of hypertension CKD Diabetes mellitus type 2 Dyslipidemia Plan: Trial Lasix 80 IV daily Nephrology consult Order for IR tunneled catheter insertion Trial BiPAP Per nephrology, plan for dialysis Continue other home medications NPO status Fall risk Bedrest continues Oxygen maintain saturation more than 90%, RT to titrate Haldol for agitation prn , avoiding any use of benzodiazepines or respiratory sedatives Tele Full code Plan discussed with: Patient My Orders Orders - LUNA ROBERTSON MD Procedure Category Date Status Time Insertion Of Venous XY 04/14/25 Resulted Cath 15:19 Renal DIET 04/14/25 Transmitted Standard(2gna,3gk,Lopho) Dinner Date of Service: Apr 15, 2025 Billing Provider: LUNA ROBERTSON MD Common Visit Codes: [id number] INP/OBS CARE(HIGH) LUNA ROBERTSON MD Apr 15, 2025 13:37
[2025-04-15] MEDS: CALCIUM ACETATE 667 MG CAP PO SCH (15:13)
[2025-04-15] MEDS: SODIUM CHL 0.9% 1000 ML BAG XX ONE (18:27)
[2025-04-15] MEDS: EPOETIN ALFA-EPBX 10,000 UNIT/1ML VIAL SC ONE (21:15)
[2025-04-16] VITALS (9 sets, daily range): BP systolic 167; BP diastolic 73; PULSE 68–73; RESP 13–22; O2SAT 99–100
[2025-04-16 04:35] LABS: Hemoglobin 9.3 g/dL (13.5-17.5)
[2025-04-16 04:37] LABS: Hematocrit 28.7 % (41.0-53.0); Mean Corpuscular Hemoglobin 25.4 pg (28.0-32.0); Mean Corpuscular Volume 78.1 fL (80.0-100.0); Nucleated Red Blood Cells % 0.5 %
[2025-04-16 04:49] LABS: Alanine Aminotransferase 20 U/L (7-40); Alkaline Phosphatase 91 U/L (46-116); Anion Gap 15 (5-15); BUN/Creatinine Ratio 11.7 (10.0-20.0); Carbon Dioxide 24 mmol/L (20-31); Chloride 106 mmol/L (98-107); Glucose 103 mg/dL (74-106); Potassium 3.6 mmol/L (3.5-5.1)
[2025-04-16 05:12] LABS: Albumin 2.9 g/dL (3.2-4.8); Bilirubin, Total 0.3 mg/dL (0.2-1.0); Blood Urea Nitrogen 39 mg/dL (9-23); Calcium 7.4 mg/dL (8.7-10.4); Sodium 145 mmol/L (136-145); Total Protein 5.3 g/dL (5.7-8.2)
--- NOTE | 2025-04-16 10:45 | DVHPN2 ---
Progress Note Date Seen: Apr 16, 2025 Medical Necessity Reason Pt with a Central, PICC or Fol: Yes Objective vital signs Vital Sign Date Time Temp Pulse Resp B/P (MAP) Pulse Ox O2 Delivery O2 Flow Rate FiO2 04/16/25 10:17 182/79 04/16/25 09:30 72 13 99 04/16/25 08:32 Simple Mask* 6 50 04/16/25 08:30 98.0 98.0 Total Intake and Output 04/15/25 04/15/25 04/16/25 15:00 23:00 07:00 Output Total 2300 ml Balance -2300 ml medications Current Medications Medications Dose Ordered Sig/Lurdes Route Start Time Stop Time Status Last Admin Dose Admin Diagnostic Test (Pha) 1 strip Q6HR 04/13/25 00:00 04/16/25 06:27 1 STRIP Insulin Human Regular Q6HR SC 04/13/25 00:00 04/15/25 15:14 2 UNITS Dextrose 50 ml UD PRN IV 04/12/25 19:45 Ondansetron HCl 4 mg Q4HP PRN IV 04/12/25 19:45 Nitroglycerin 0.4 mg Q5MINP PRN SL 04/12/25 19:45 Morphine Sulfate 2 mg Q30M PRN IV 04/12/25 19:45 Ipratropium [place] 0.5 mg Q6HWA NEB 04/13/25 12:00 04/16/25 06:05 0.5 MG Albuterol 2.5 mg Q6HWA [facility] 04/13/25 12:00 04/16/25 06:05 2.5 MG Furosemide 80 mg DAILY IV 04/14/25 10:00 04/16/25 10:17 80 MG Iron Sucrose 110 ml @ 110 mls/hr DAILY@1200 IV 04/14/25 12:00 04/18/25 12:59 04/15/25 15:12 110 MLS/HR Hydralazine HCl 10 mg Q6HP PRN IV 04/14/25 10:15 04/16/25 01:45 10 MG Amlodipine Besylate 10 mg DAILY PO 04/15/25 10:00 04/15/25 10:09 10 MG Lisinopril 40 mg DAILY PO 04/15/25 10:00 04/16/25 10:17 40 MG Calcium Acetate 1,334 mg TIDWMEALS PO 04/15/25 12:00 04/16/25 08:00 1,334 MG laboratory and microbiology Laboratory Tests 04/16/25 04:05 Test 04/16/25 04:05 Range/Units Serum Glucose 103 74-106 mg/dL Microbiology Date/Time Source Procedure Growth Status 04/12/25 14:13 Blood Blood Culture - Preliminary NO GROWTH AFTER 72 HOURS OF INCUBATION. Resulted Problem List/Assessment/Plan Problem List/Assessment/Plan This is a 65-year-old male with past medical history of hypertension, CKD, diabetes, dyslipidemia brought in due to altered mental status and shortness of breaths. JUNAID superimposed on CKD, requiring initiation of intermittent hemodialysis Congestive heart failure Encephalopathy Diabetes type 2 Nephrotic syndrome secondary to diabetic nephropathy Hypertension Dyslipidemia Obesity Hyperkalemia Metabolic acidosis Anemia of chronic kidney disease Hyperphosphatemia Recommendation * Increased urine output * Hold hemodialysis and watch for renal recovery * Epogen 72951 subQ with hemodialysis * IV Lasix 80 mg daily * Calcium acetate 1334 mg p.o. t.i.d. with meals * Strict I&Os * Renal diet * We will follow up with the patient Thank you for giving us the opportunity due to take care of your patient. Please call back if you have any questions/concerns. Plan discussed with: Patient KYLER CHU MD Apr 16, 2025 10:45
[2025-04-16] MEDS: CALCIUM ACETATE 667 MG CAP PO SCH (12:52)
--- NOTE | 2025-04-16 13:47 | DVHPN2 ---
Reviewed: H&P Changes from previous H/P or p: No Changes General: Per HPI Objective Vitals Vital Signs Date Time Temp Pulse Resp B/P (MAP) Pulse Ox O2 Delivery O2 Flow Rate FiO2 04/16/25 12:07 73 15 99 04/16/25 11:10 177/78 04/16/25 10:00 97.7 97.7 04/16/25 08:32 Simple Mask* 6 50 Intake/Output Intake and Output 04/16/25 07:00 Output Total 2300 ml Balance -2300 ml Output Urine Total 2300 ml Exam GEN: Ill-appearing, obese patient, alert, oriented only to self, HEENT: NC/AT; MMM. CV: RRR, no m/r/g. LUNGS: CTAB, no w/r/c. ABD: Soft, NT/ND, NBS, no masses or organomegaly. EXT: skin Warm, well perfused. no rashes. No clubbing, cyanosis, or edema. Medications Current Medications Medications Dose Ordered Sig/Lurdes Route Start Time Stop Time Status Last Admin Dose Admin Diagnostic Test (Pha) 1 strip Q6HR 04/13/25 00:00 04/16/25 12:03 1 STRIP Insulin Human Regular Q6HR SC 04/13/25 00:00 04/16/25 12:18 2 UNITS Dextrose 50 ml UD PRN IV 04/12/25 19:45 Ondansetron HCl 4 mg Q4HP PRN IV 04/12/25 19:45 Nitroglycerin 0.4 mg Q5MINP PRN SL 04/12/25 19:45 Morphine Sulfate 2 mg Q30M PRN IV 04/12/25 19:45 Ipratropium [place] 0.5 mg Q6HWA NEB 04/13/25 12:00 04/16/25 11:56 0.5 MG Albuterol 2.5 mg Q6HWA [facility] 04/13/25 12:00 04/16/25 11:56 2.5 MG Furosemide 80 mg DAILY IV 04/14/25 10:00 04/16/25 10:17 80 MG Iron Sucrose 110 ml @ 110 mls/hr DAILY@1200 IV 04/14/25 12:00 04/18/25 12:59 04/16/25 12:00 110 MLS/HR Hydralazine HCl 10 mg Q6HP PRN IV 04/14/25 10:15 04/16/25 01:45 10 MG Amlodipine Besylate 10 mg DAILY PO 04/15/25 10:00 04/16/25 11:10 10 MG Calcium Acetate 667 mg TIDWMEALS PO 04/16/25 10:45 04/16/25 12:52 667 MG Hydralazine HCl 50 mg Q8HR PO 04/16/25 14:00 Laboratory Results Laboratory Tests 04/16/25 04:05 Chemistry Test 04/16/25 04:05 Albumin 2.9 g/dL (3.2-4.8) L Calcium Level 7.4 mg/dL (8.7-10.4) L Total Protein 5.3 g/dL (5.7-8.2) L LFT Test 04/16/25 04:05 Alanine Aminotransferase (ALT) 20 U/L (7-40) Alkaline Phosphatase 91 U/L (46-116) Aspartate Amino Transferase (AST) 28 U/L (13-40) Total Bilirubin 0.3 mg/dL (0.2-1.0) Urinalysis Test 04/12/25 15:13 Urine Color Light-yellow (Yellow) Urine Clarity Turbid (Clear) H Urine pH 6.0 (5.0-9.0) Urine Specific [place] 1.014 (1.001-1.035) Urine Protein 3+ (Negative) H Urine Ketones Negative (Negative) Urine Blood Negative /uL (Negative) Urine Nitrite Negative (Negative) Urine Bilirubin Negative (Negative) Urine Urobilinogen Normal mg/dL (Negative) Urine Leukocyte Esterase Negative /uL (Negative) Urine RBC 2 /hpf (0 - 3) Urine Microscopic WBC < 1 /HPF (0-3) Urine Squamous Epithelial Cells None seen /hpf (<5) Urine Bacteria None seen /hpf (None Seen) Urine Yeast (Budding) Occasional /hpf (None Urine Creatinine 80.27 mg/dL (30.0-125.0) Urine Protein/Creatinine Ratio 6.47 Urine Sodium 42 mmol/L (40-220) Urine Glucose 3+ mg/dL (Normal) H Urine Total Protein 519.3 mg/dL (1-14) H Microbiology Microbiology Date/Time Source Procedure Growth Status 04/12/25 14:13 Blood Blood Culture - Preliminary NO GROWTH AFTER 72 HOURS OF INCUBATION. Resulted Labs and/or images reviewed: Labs reviewed by me, Image(s) reviewed by me Assessment/Plan Assessment/Plan 65-year-old male presents for evaluation of altered mental status. Patient was noted to be E come progressively more lethargic over the past few day by family members. Patient is currently lethargic and oriented x3. Patient denies chest pain. Reports mild shortness for breath. No unilateral weakness or slurred speech noted. Past Medical History Hypertension, chronic kidney disease, diabetes mellitus, dyslipidemia 04/13: 65-year-old male history CKD hypertension diabetes dyslipidemia, presenting with ALOC. Lethargic were few days. On presentation has acidosis 7.2, chronic anemia 8.6., hyperkalemia 6.0, creatinine 6, BUN azotemia 69, anion gap acidosis, mild transaminitis, BNP elevated 1231. Progression of CKD, likely uremic encephalopathy, head CT benign, renal nephrology consulted plan for starting dialysis. Also having bradycardia, tachypnea, on 6 L mask, hypotensive 170s,. Continuing trial of Lasix 80 IV daily, sliding scale for diabetes,. 04/14: Patient continues to protect airway, yesterday did BiPAP trial which did not improve the acidosis. Acidosis likely from uremic. Patient A&O times 3-4, family at bedside supportive. Continue for plan for IR tunnel cath and then dialysis, we will re-evaluate thereafter. On eval patient is is excessively fatigued and sleepy, no pericardial rub, likely effects of uremia. Can deescalate care to tele after dialysis. 04/15: Nephrology monitoring, plan for outpatient dialysis, we will put social order for set up for chair time. Continuing monitoring, daily CMP. Nephrology following appreciate recommendations. 04/16: Patient on 7 L oxygen, making good urine, continued to get dialysis. We will continue BiPAP at night 05/13, can try patient on Oxymizer to deescalate patient to telemetry if needed. Patient can deescalate to telemetry today. Patient continues to have rhonchi, unclear whether this is pneumonia versus ESRD, we will start ceftriaxone 1 g daily, azithromycin 500 mg daily. We will also start patient on baclofen 10 b.i.d. for lower back pain Diagnosis: Acute uremic encephalopathy Acute metabolic encephalopathy, due to above Hypokalemia Hypervolemia, diuretic resistant Mild transaminitis Azotemia Anemia, chronic from a normocytic, likely anemia of chronic renal disease Acidosis Anion gap metabolic acidosis Bradycardia Tachypnea Hypertensive crisis History of hypertension CKD Diabetes mellitus type 2 Dyslipidemia Plan: Trial Lasix 80 IV daily Nephrology consult Order for IR tunneled catheter insertion Trial BiPAP Per nephrology, plan for dialysis Continue other home medications NPO status Fall risk Bedrest continues Oxygen maintain saturation more than 90%, RT to titrate Haldol for agitation prn , avoiding any use of benzodiazepines or respiratory sedatives Tele Full code Plan discussed with: Patient Date of Service: Apr 16, 2025 Billing Provider: LUNA ROBERTSON MD Common Visit Codes: [id number] INP/OBS CARE(HIGH) LUNA ROBERTSON MD Apr 16, 2025 13:47
[2025-04-16] MEDS ORDERED: ACETAMINOPHEN 325 MG TAB PO PRN (14:00)
[2025-04-16] MEDS: AZITHROMYCIN 500MG/ 250ML 250 ML IV SCH (15:07)
[2025-04-16] MEDS: BACLOFEN 10 MG TAB PO SCH (22:41)
[2025-04-17] VITALS (19 sets, daily range): BP systolic 146–176; BP diastolic 70–92; PULSE 60–75; RESP 16–20; TEMP 97.5–97.9; O2SAT 93–100
[2025-04-17 08:21] LABS: Alanine Aminotransferase 17 U/L (7-40); Alkaline Phosphatase 81 U/L (46-116); BUN/Creatinine Ratio 9.5 (10.0-20.0); Carbon Dioxide 26 mmol/L (20-31); Glucose 99 mg/dL (74-106)
[2025-04-17 08:26] LABS: Albumin 3.0 g/dL (3.2-4.8); Bilirubin, Total 0.3 mg/dL (0.2-1.0); Blood Urea Nitrogen 32 mg/dL (9-23); Calcium 7.7 mg/dL (8.7-10.4); Total Protein 5.6 g/dL (5.7-8.2)
[2025-04-17 09:00] LABS: Anion Gap 14 (5-15); Chloride 105 mmol/L (98-107); Potassium 3.1 mmol/L (3.5-5.1); Sodium 145 mmol/L (136-145)
--- NOTE | 2025-04-17 10:57 | DVHPN2 ---
Progress Note Date Seen: Apr 17, 2025 Medical Necessity Reason Pt with a Central, PICC or Fol: Yes Subjective Patient reports: No new complaints Other Systems: Patient seen and examined by myself today in follow-up Objective vital signs Vital Sign Date Time Temp Pulse Resp B/P (MAP) Pulse Ox O2 Delivery O2 Flow Rate FiO2 04/17/25 09:00 97.7 68 16 153/88 (109) 99 97.7 04/17/25 08:20 Nasal Cannula* 3 32 Total Intake and Output 04/16/25 04/16/25 04/17/25 15:00 23:00 07:00 Intake Total 110 ml 300 ml 800 ml Output Total 1000 ml 1500 ml Balance -890 ml 300 ml -700 ml medications Current Medications Medications Dose Ordered Sig/Lurdes Route Start Time Stop Time Status Last Admin Dose Admin Diagnostic Test (Pha) 1 strip Q6HR 04/13/25 00:00 04/17/25 06:01 1 STRIP Insulin Human Regular Q6HR SC 04/13/25 00:00 04/16/25 12:18 2 UNITS Dextrose 50 ml UD PRN IV 04/12/25 19:45 Ondansetron HCl 4 mg Q4HP PRN IV 04/12/25 19:45 Nitroglycerin 0.4 mg Q5MINP PRN SL 04/12/25 19:45 Morphine Sulfate 2 mg Q30M PRN IV 04/12/25 19:45 Ipratropium [place] 0.5 mg Q6HWA [facility] 04/13/25 12:00 04/17/25 08:29 0.5 MG Albuterol 2.5 mg Q6HWA [facility] 04/13/25 12:00 04/17/25 08:29 2.5 MG Furosemide 80 mg DAILY IV 04/14/25 10:00 04/17/25 08:42 80 MG Iron Sucrose 110 ml @ 110 mls/hr DAILY@1200 IV 04/14/25 12:00 04/18/25 12:59 04/16/25 12:00 110 MLS/HR Hydralazine HCl 10 mg Q6HP PRN IV 04/14/25 10:15 04/17/25 01:12 10 MG Amlodipine Besylate 10 mg DAILY PO 04/15/25 10:00 04/17/25 08:31 10 MG Calcium Acetate 667 mg TIDWMEALS PO 04/16/25 10:45 04/17/25 08:29 667 MG Hydralazine HCl 50 mg Q8HR PO 04/16/25 14:00 04/17/25 06:09 50 MG Ceftriaxone Sodium 50 ml @ 100 mls/hr DAILY@09 IV 04/16/25 14:00 04/17/25 08:29 100 MLS/HR Azithromycin 250 ml @ 125 mls/hr DAILY IV 04/16/25 15:00 04/17/25 08:51 125 MLS/HR Baclofen 10 mg BID PO 04/16/25 22:00 04/17/25 08:29 10 MG Acetaminophen 650 mg Q4HP PRN PO 04/16/25 14:00 Acetaminophen/ Hydrocodone Bitart 1 tab Q6HP PRN PO 04/16/25 14:00 Examination: LUNGS:Normal, CVS:Normal, MSK:Normal laboratory and microbiology Laboratory Tests 04/17/25 06:27 04/16/25 04:05 Test 04/17/25 06:27 Range/Units Serum Glucose 99 74-106 mg/dL Microbiology Date/Time Source Procedure Growth Status 04/12/25 14:13 Blood Blood Culture - Preliminary NO GROWTH AFTER 72 HOURS OF INCUBATION. Resulted Problem List/Assessment/Plan Problem List/Assessment/Plan This is a 65-year-old male with past medical history of hypertension, CKD, diabetes, dyslipidemia brought in due to altered mental status and shortness of breaths. 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 t.i.d. with meals * Strict I&Os * Renal diet * We will follow up with the patient Thank you for giving us the opportunity due to take care of your patient. Please call back if you have any questions/concerns. Plan discussed with: Patient KYLER CHU MD Apr 17, 2025 10:57
--- NOTE | 2025-04-17 13:10 | DVHPN2 ---
Reviewed: H&P Changes from previous H/P or p: No Changes General: Per HPI Objective Vitals Vital Signs Date Time Temp Pulse Resp B/P (MAP) Pulse Ox O2 Delivery O2 Flow Rate FiO2 04/17/25 09:00 97.7 68 16 153/88 (109) 99 97.7 04/17/25 08:20 Nasal Cannula* 3 32 Intake/Output Intake and Output 04/17/25 07:00 Intake Total 1210 ml Output Total 2500 ml Balance -1290 ml Intake Oral 800 ml IV Total 410 ml Output Urine Total 2500 ml # Bowel Movements 1 Exam GEN: Ill-appearing, obese patient, alert, oriented only to self, HEENT: NC/AT; MMM. CV: RRR, no m/r/g. LUNGS: CTAB, no w/r/c. ABD: Soft, NT/ND, NBS, no masses or organomegaly. EXT: skin Warm, well perfused. no rashes. No clubbing, cyanosis, or edema. Medications Current Medications Medications Dose Ordered Sig/Lurdes Route Start Time Stop Time Status Last Admin Dose Admin Diagnostic Test (Pha) 1 strip Q6HR 04/13/25 00:00 04/17/25 12:16 1 STRIP Insulin Human Regular Q6HR SC 04/13/25 00:00 04/17/25 12:14 2 UNITS Dextrose 50 ml UD PRN IV 04/12/25 19:45 Ondansetron HCl 4 mg Q4HP PRN IV 04/12/25 19:45 Nitroglycerin 0.4 mg Q5MINP PRN SL 04/12/25 19:45 Morphine Sulfate 2 mg Q30M PRN IV 04/12/25 19:45 Ipratropium [place] 0.5 mg Q6HWA NEB 04/13/25 12:00 04/17/25 08:29 0.5 MG Albuterol 2.5 mg Q6HWA [facility] 04/13/25 12:00 04/17/25 08:29 2.5 MG Furosemide 80 mg DAILY IV 04/14/25 10:00 04/17/25 08:42 80 MG Iron Sucrose 110 ml @ 110 mls/hr DAILY@1200 IV 04/14/25 12:00 04/18/25 12:59 04/17/25 12:13 110 MLS/HR Hydralazine HCl 10 mg Q6HP PRN IV 04/14/25 10:15 04/17/25 01:12 10 MG Amlodipine Besylate 10 mg DAILY PO 04/15/25 10:00 04/17/25 08:31 10 MG Calcium Acetate 667 mg TIDWMEALS PO 04/16/25 10:45 04/17/25 12:14 667 MG Hydralazine HCl 50 mg Q8HR PO 04/16/25 14:00 04/17/25 06:09 50 MG Ceftriaxone Sodium 50 ml @ 100 mls/hr DAILY@09 IV 04/16/25 14:00 04/17/25 08:29 100 MLS/HR Azithromycin 250 ml @ 125 mls/hr DAILY IV 04/16/25 15:00 04/17/25 08:51 125 MLS/HR Baclofen 10 mg BID PO 04/16/25 22:00 04/17/25 08:29 10 MG Acetaminophen 650 mg Q4HP PRN PO 04/16/25 14:00 Acetaminophen/ Hydrocodone Bitart 1 tab Q6HP PRN PO 04/16/25 14:00 Laboratory Results Laboratory Tests 04/16/25 04:05 04/17/25 06:27 Chemistry Test 04/17/25 06:27 Albumin 3.0 g/dL (3.2-4.8) L Calcium Level 7.7 mg/dL (8.7-10.4) L Total Protein 5.6 g/dL (5.7-8.2) L LFT Test 04/17/25 06:27 Alanine Aminotransferase (ALT) 17 U/L (7-40) Alkaline Phosphatase 81 U/L (46-116) Aspartate Amino Transferase (AST) 33 U/L (13-40) Total Bilirubin 0.3 mg/dL (0.2-1.0) Urinalysis Test 04/12/25 15:13 Urine Color Light-yellow (Yellow) Urine Clarity Turbid (Clear) H Urine pH 6.0 (5.0-9.0) Urine Specific [place] 1.014 (1.001-1.035) Urine Protein 3+ (Negative) H Urine Ketones Negative (Negative) Urine Blood Negative /uL (Negative) Urine Nitrite Negative (Negative) Urine Bilirubin Negative (Negative) Urine Urobilinogen Normal mg/dL (Negative) Urine Leukocyte Esterase Negative /uL (Negative) Urine RBC 2 /hpf (0 - 3) Urine Microscopic WBC < 1 /HPF (0-3) Urine Squamous Epithelial Cells None seen /hpf (<5) Urine Bacteria None seen /hpf (None Seen) Urine Yeast (Budding) Occasional /hpf (None Urine Creatinine 80.27 mg/dL (30.0-125.0) Urine Protein/Creatinine Ratio 6.47 Urine Sodium 42 mmol/L (40-220) Urine Glucose 3+ mg/dL (Normal) H Urine Total Protein 519.3 mg/dL (1-14) H Microbiology Microbiology Date/Time Source Procedure Growth Status 04/12/25 14:13 Blood Blood Culture - Preliminary NO GROWTH AFTER 72 HOURS OF INCUBATION. Resulted Labs and/or images reviewed: Labs reviewed by me, Image(s) reviewed by me Assessment/Plan Assessment/Plan 65-year-old male presents for evaluation of altered mental status. Patient was noted to be E come progressively more lethargic over the past few day by family members. Patient is currently lethargic and oriented x3. Patient denies chest pain. Reports mild shortness for breath. No unilateral weakness or slurred speech noted. Past Medical History Hypertension, chronic kidney disease, diabetes mellitus, dyslipidemia 04/13: 65-year-old male history CKD hypertension diabetes dyslipidemia, presenting with ALOC. Lethargic were few days. On presentation has acidosis 7.2, chronic anemia 8.6., hyperkalemia 6.0, creatinine 6, BUN azotemia 69, anion gap acidosis, mild transaminitis, BNP elevated 1231. Progression of CKD, likely uremic encephalopathy, head CT benign, renal nephrology consulted plan for starting dialysis. Also having bradycardia, tachypnea, on 6 L mask, hypotensive 170s,. Continuing trial of Lasix 80 IV daily, sliding scale for diabetes,. 04/14: Patient continues to protect airway, yesterday did BiPAP trial which did not improve the acidosis. Acidosis likely from uremic. Patient A&O times 3-4, family at bedside supportive. Continue for plan for IR tunnel cath and then dialysis, we will re-evaluate thereafter. On eval patient is is excessively fatigued and sleepy, no pericardial rub, likely effects of uremia. Can deescalate care to tele after dialysis. 04/15: Nephrology monitoring, plan for outpatient dialysis, we will put social order for set up for chair time. Continuing monitoring, daily CMP. Nephrology following appreciate recommendations. 04/16: Patient on 7 L oxygen, making good urine, continued to get dialysis. We will continue BiPAP at night 05/13, can try patient on Oxymizer to deescalate patient to telemetry if needed. Patient can deescalate to telemetry today. Patient continues to have rhonchi, unclear whether this is pneumonia versus ESRD, we will start ceftriaxone 1 g daily, azithromycin 500 mg daily. We will also start patient on baclofen 10 b.i.d. for lower back pain 04/17: Continuing patient on treatment for possible pneumonia, patient is more alert oriented and interactive since dialysis has started. Waiting for chair time. Likely DC tomorrow with completion course of antibiotics and possibly have care time set up by tomorrow. We will follow up with social workers. Rectal thermometer for unknown reason we will remove. Diagnosis: Acute uremic encephalopathy Acute metabolic encephalopathy, due to above Hypokalemia Hypervolemia, diuretic resistant Mild transaminitis Azotemia Anemia, chronic from a normocytic, likely anemia of chronic renal disease Acidosis Anion gap metabolic acidosis Bradycardia Tachypnea Hypertensive crisis History of hypertension CKD Diabetes mellitus type 2 Dyslipidemia Plan: Trial Lasix 80 IV daily Nephrology consult Order for IR tunneled catheter insertion Trial BiPAP Per nephrology, plan for dialysis Continue other home medications NPO status Fall risk Bedrest continues Oxygen maintain saturation more than 90%, RT to titrate Haldol for agitation prn , avoiding any use of benzodiazepines or respiratory sedatives Tele Full code Plan discussed with: Patient My Orders Orders - LUNA ROBERTSON MD Procedure Category Date Status Time Ceftriaxone 1gm/50ml PHA 04/16/25 In Process (Rocephin) 14:00 Azithromycin 500mg/ PHA 04/16/25 In Process 250ml (Zithromax 50 15:00 Baclofen Tablet PHA 04/16/25 In Process (Liorisal Tablet) 22:00 Acetaminophen Tablet PHA 04/16/25 In Process (Tylenol Tablet) 14:00 Hydrocodone-Acet PHA 04/16/25 In Process 10/325mg Tab ([place] 14:00 Date of Service: Apr 17, 2025 Billing Provider: LUNA ROBERTSON MD Common Visit Codes: [id number] INP/OBS CARE(HIGH) LUNA ROBERTSON MD Apr 17, 2025 13:10
[2025-04-18] VITALS (14 sets, daily range): BP systolic 160–173; BP diastolic 76–85; PULSE 66–77; RESP 16–19; TEMP 98.1–98.7; O2SAT 90–100
[2025-04-18 06:56] LABS: Hemoglobin 8.6 g/dL (13.5-17.5); Nucleated Red Blood Cells % 0.2 %
[2025-04-18 06:59] LABS: Hematocrit 26.1 % (41.0-53.0); Mean Corpuscular Hemoglobin 25.6 pg (28.0-32.0); Mean Corpuscular Volume 78.0 fL (80.0-100.0)
[2025-04-18 07:07] LABS: Anion Gap 11 (5-15); Carbon Dioxide 30 mmol/L (20-31); Chloride 103 mmol/L (98-107); Sodium 144 mmol/L (136-145)
[2025-04-18 07:13] LABS: BUN/Creatinine Ratio 10.5 (10.0-20.0); Potassium 3.0 mmol/L (3.5-5.1)
[2025-04-18 07:18] LABS: Blood Urea Nitrogen 33 mg/dL (9-23); Calcium 7.9 mg/dL (8.7-10.4); Glucose 123 mg/dL (74-106)
--- NOTE | 2025-04-18 10:05 | DVHPN2 ---
Reviewed: H&P Changes from previous H/P or p: No Changes General: Per HPI Objective Vitals Vital Signs Date Time Temp Pulse Resp B/P (MAP) Pulse Ox O2 Delivery O2 Flow Rate FiO2 04/18/25 05:59 173/85 04/18/25 05:47 66 18 100 04/18/25 05:41 Nasal Cannula* 2 28 04/18/25 04:53 98.1 98.1 Intake/Output Intake and Output 04/18/25 07:00 Intake Total 1700 ml Output Total 2300 ml Balance -600 ml Intake Oral 1290 ml IV Total 410 ml Output Urine Total 2300 ml # Bowel Movements 3 Exam GEN: Ill-appearing, obese patient, alert, oriented only to self, HEENT: NC/AT; MMM. CV: RRR, no m/r/g. LUNGS: CTAB, no w/r/c. ABD: Soft, NT/ND, NBS, no masses or organomegaly. EXT: skin Warm, well perfused. no rashes. No clubbing, cyanosis, or edema. Medications Current Medications Medications Dose Ordered Sig/Lurdes Route Start Time Stop Time Status Last Admin Dose Admin Diagnostic Test (Pha) 1 strip Q6HR 04/13/25 00:00 04/18/25 05:59 1 STRIP Insulin Human Regular Q6HR SC 04/13/25 00:00 04/18/25 00:20 3 UNITS Dextrose 50 ml UD PRN IV 04/12/25 19:45 Ondansetron HCl 4 mg Q4HP PRN IV 04/12/25 19:45 Nitroglycerin 0.4 mg Q5MINP PRN SL 04/12/25 19:45 Morphine Sulfate 2 mg Q30M PRN IV 04/12/25 19:45 Ipratropium [place] 0.5 mg Q6HWA NEB 04/13/25 12:00 04/18/25 05:41 0.5 MG Albuterol 2.5 mg Q6HWA NEB 04/13/25 12:00 04/18/25 05:41 2.5 MG Furosemide 80 mg DAILY IV 04/14/25 10:00 04/17/25 08:42 80 MG Iron Sucrose 110 ml @ 110 mls/hr DAILY@1200 IV 04/14/25 12:00 04/18/25 12:59 04/17/25 12:13 110 MLS/HR Hydralazine HCl 10 mg Q6HP PRN IV 04/14/25 10:15 04/17/25 01:12 10 MG Amlodipine Besylate 10 mg DAILY PO 04/15/25 10:00 04/17/25 08:31 10 MG Calcium Acetate 667 mg TIDWMEALS PO 04/16/25 10:45 04/18/25 08:31 667 MG Hydralazine HCl 50 mg Q8HR PO 04/16/25 14:00 04/18/25 05:59 50 MG Ceftriaxone Sodium 50 ml @ 100 mls/hr DAILY@09 IV 04/16/25 14:00 04/18/25 08:31 100 MLS/HR Azithromycin 250 ml @ 125 mls/hr DAILY IV 04/16/25 15:00 04/17/25 08:51 125 MLS/HR Baclofen 10 mg BID PO 04/16/25 22:00 04/17/25 21:30 10 MG Acetaminophen 650 mg Q4HP PRN PO 04/16/25 14:00 Acetaminophen/ Hydrocodone Bitart 1 tab Q6HP PRN PO 04/16/25 14:00 Laboratory Results Laboratory Tests 04/18/25 06:09 Chemistry Test 04/18/25 06:09 Calcium Level 7.9 mg/dL (8.7-10.4) L Urinalysis Test 04/12/25 15:13 Urine Color Light-yellow (Yellow) Urine Clarity Turbid (Clear) H Urine pH 6.0 (5.0-9.0) Urine Specific [place] 1.014 (1.001-1.035) Urine Protein 3+ (Negative) H Urine Ketones Negative (Negative) Urine Blood Negative /uL (Negative) Urine Nitrite Negative (Negative) Urine Bilirubin Negative (Negative) Urine Urobilinogen Normal mg/dL (Negative) Urine Leukocyte Esterase Negative /uL (Negative) Urine RBC 2 /hpf (0 - 3) Urine Microscopic WBC < 1 /HPF (0-3) Urine Squamous Epithelial Cells None seen /hpf (<5) Urine Bacteria None seen /hpf (None Seen) Urine Yeast (Budding) Occasional /hpf (None Urine Creatinine 80.27 mg/dL (30.0-125.0) Urine Protein/Creatinine Ratio 6.47 Urine Sodium 42 mmol/L (40-220) Urine Glucose 3+ mg/dL (Normal) H Urine Total Protein 519.3 mg/dL (1-14) H Microbiology Microbiology Date/Time Source Procedure Growth Status 04/12/25 14:13 Blood Blood Culture - Final NO GROWTH AFTER 5 DAYS OF INCUBATION. Complete Labs and/or images reviewed: Labs reviewed by me, Image(s) reviewed by me Assessment/Plan Assessment/Plan 65-year-old male presents for evaluation of altered mental status. Patient was noted to be E come progressively more lethargic over the past few day by family members. Patient is currently lethargic and oriented x3. Patient denies chest pain. Reports mild shortness for breath. No unilateral weakness or slurred speech noted. Past Medical History Hypertension, chronic kidney disease, diabetes mellitus, dyslipidemia 04/13: 65-year-old male history CKD hypertension diabetes dyslipidemia, presenting with ALOC. Lethargic were few days. On presentation has acidosis 7.2, chronic anemia 8.6., hyperkalemia 6.0, creatinine 6, BUN azotemia 69, anion gap acidosis, mild transaminitis, BNP elevated 1231. Progression of CKD, likely uremic encephalopathy, head CT benign, renal nephrology consulted plan for starting dialysis. Also having bradycardia, tachypnea, on 6 L mask, hypotensive 170s,. Continuing trial of Lasix 80 IV daily, sliding scale for diabetes,. 04/14: Patient continues to protect airway, yesterday did BiPAP trial which did not improve the acidosis. Acidosis likely from uremic. Patient A&O times 3-4, family at bedside supportive. Continue for plan for IR tunnel cath and then dialysis, we will re-evaluate thereafter. On eval patient is is excessively fatigued and sleepy, no pericardial rub, likely effects of uremia. Can deescalate care to tele after dialysis. 04/15: Nephrology monitoring, plan for outpatient dialysis, we will put social order for set up for chair time. Continuing monitoring, daily CMP. Nephrology following appreciate recommendations. 04/16: Patient on 7 L oxygen, making good urine, continued to get dialysis. We will continue BiPAP at night 05/13, can try patient on Oxymizer to deescalate patient to telemetry if needed. Patient can deescalate to telemetry today. Patient continues to have rhonchi, unclear whether this is pneumonia versus ESRD, we will start ceftriaxone 1 g daily, azithromycin 500 mg daily. We will also start patient on baclofen 10 b.i.d. for lower back pain 04/17: Continuing patient on treatment for possible pneumonia, patient is more alert oriented and interactive since dialysis has started. Waiting for chair time. Likely DC tomorrow with completion course of antibiotics and possibly have care time set up by tomorrow. We will follow up with social workers. Rectal thermometer for unknown reason we will remove. 04/18: Replace potassium, continue ESRD, waiting for chair time, we will ambulate patient with RN, if has trouble we will get PT onboard. If ambulating well we will remove [place]. Patient on 2 L nasal cannula, we will get room air ABG after trying to wean off. Otherwise continue present management. Antibiotics to finish today. - tentative discharge plan: the patient needs sniff, acute PT rehab as there is maximal assist needed but showing rehab potential. continuing oxygen, to be taken continuous nasal cannula 2 L / no further antibiotics need. stop metformin, take insulin NovoLog R FlexPen, we will do sliding scale insulin only for meals. If take insulin must take meal to avoid hypoglycemia.. Continue dialysis schedule as per chair time schedule, [facility] dialysis. continue other home medications not mentioned above. follow up with PCP to review discharge. follow up with DC clinic 1 week. - patient having maximum assist, need to finalize insulin need for home. We will hold off discharge today. Patient likely needs SNF PT rehab but is in agreement with his needs and wants to go home. We will have family meeting with son. We will change insulin to mild a.c. HS. Diagnosis: Acute uremic encephalopathy , now dialysis dependent tunnel catheter for dialysis Acute metabolic encephalopathy, due to above pneumonia, gram neg/gram pos likely Hypokalemia Hypervolemia, diuretic resistant Mild transaminitis Azotemia Anemia, chronic from a normocytic, likely anemia of chronic renal disease Acidosis Anion gap metabolic acidosis Bradycardia Tachypnea Hypertensive crisis History of hypertension CKD Diabetes mellitus type 2 Dyslipidemia Plan: Trial Lasix 80 IV daily Nephrology consult Order for IR tunneled catheter insertion Trial BiPAP Per nephrology, plan for dialysis Continue other home medications NPO status Fall risk Bedrest continues Oxygen maintain saturation more than 90%, RT to titrate Haldol for agitation prn , avoiding any use of benzodiazepines or respiratory sedatives Tele Full code Plan discussed with: Patient My Orders Orders - LUNA ROBERTSON MD Procedure Category Date Status Time * Wound Consult CONS 04/17/25 Transmitted Date of Service: Apr 18, 2025 Billing Provider: LUAN ROBERTSON MD Common Visit Codes: [id number] INP/OBS CARE(HIGH) LUNA ROBERTSON MD Apr 18, 2025 10:05
[2025-04-18 10:20] LABS: Base Excess 4.4 mmol/L (-2.0-3.0)
--- NOTE | 2025-04-18 11:05 | DVHSR ---
APPROVED REPORT EXAM: LIMITED Two-dimensional and M-mode echocardiogram with Doppler and color Doppler. Blood Pressure: 158/62 mmHg INDICATION HF? RISK FACTORS Height: 5' 10", Weight: 249 DIMENSIONS LVDd 5.4 (3.8-5.7cm) LA (2D) 4.2 (1.9-4.0cm) Aortic Root 4.1 (2.0-3.7cm) LVDs 3.8 (2.5-4.0cm) LA (MM) (1.9-4.0cm) Aortic Cusp Exc 1.8 (1.5-2.0cm) EF (%) 55.0 (55-70%) Rt. Atrium 4.5 (1.9-4.0cm) Asc. Aorta cm IVSd 1.2 (0.7-1.1cm) RV (D) (1.8-2.4cm) PWd 1.2 (0.7-1.1cm) Mitral Valve Mitral Mitral Stenosis E wave 1.10m/s MV Mean GR. mmHg A wave 1.00m/s MV Peak GR. mmHg E/A ratio 1.1 2D MVA cm2 Aortic Valve Aortic Valve Aortic Stenosis V1 0.80m/s AO Mean GR. 10mmHg V2 2.30m/s AO Peak GR. 23mmHg LVOT Diameter 2.5 (1.8-2.4cm) Doppler DESI 1.71cm2 AI P 1/2 Time 686.57ms Pulmonic Valve V2 0.40m/s Tricuspid Valve TR Velocity 2.90m/s RVSP 39mmHg Conclusion very limited study lvef 55% normal rv function left atrium enlarged no severe valve abnormalities noted normal pericardium
[2025-04-18] MEDS: POTASSIUM EFFERVESENT TAB 25 MEQ PO ONE (12:31)
--- NOTE | 2025-04-18 15:03 | DVHDS2 ---
Discharge Summary Date of Admission Apr 12, 2025 at 19:35 Date of Discharge: Apr 18, 2025 Labs/Diagnostic Data: Laboratory Results Test 04/18/25 12:30 04/18/25 10:16 04/18/25 06:09 04/17/25 06:27 POC Glucose 181 mg/dl (70-106) Blood Gas Specimen Type Arterial Blood Gas Sample Site Right radial Blood Gas Patient Temperature 37.0 Arterial Blood Date Drawn [id number] Arterial Blood pH 7.418 (7.350-7.450) Arterial Blood Partial Pressure CO2 46.7 mmHg (35.0-48.0) Arterial Blood Partial Pressure O2 41.0 mmHg (83.0-108.0) Arterial Blood HCO3 29.5 mmol/L (21.0-28.0) Arterial Blood Oxygen Saturation 77.1 % (94.0-98.0) Arterial Blood Base Excess 4.4 mmol/L (-2.0-3.0) Arterial Blood Oxyhemoglobin 76.0 % (94.0-98.0) Arterial Blood Carboxyhemoglobin 1.1 % (0.5-1.5) Arterial Blood Methemoglobin 0.3 % (0.0-1.5) Andrzej Test Yes Blood Gas Total Hemoglobin 8.80 g/dL (13.5-17.5) Blood Gas Modality Room air FiO2 % 21.0 Blood Gas Critical Value Read Back yes Blood Gas Notified Whom Brandy graceshlomo Blood Gas Notified Time [id number] Blood Gas Notified By pet walker lavon estrada White Blood Count 7.5 10^3/uL (4.4-10.8) Red Blood Count 3.35 10^6/uL (4.5-5.90) Hemoglobin 8.6 g/dL (13.5-17.5) Hematocrit 26.1 % (41.0-53.0) Mean Corpuscular Volume 78.0 fL (80.0-100.0) Mean Corpuscular Hemoglobin 25.6 pg (28.0-32.0) Mean Corpuscular Hemoglobin Concent 32.8 g/dL (32.0-36.0) Red Cell Distribution Width 17.3 % (11.8-14.3) Platelet Count 273 10^3/uL (140-450) Mean Platelet Volume 8.5 fL (6.9-10.8) Neutrophils (%) (Auto) 74.7 % (37.0-80.0) Lymphocytes (%) (Auto) 13.7 % (10.0-50.0) Monocytes (%) (Auto) 10.6 % (0.0-12.0) Eosinophils (%) (Auto) 0.7 % (0.0-7.0) Basophils (%) (Auto) 0.3 % (0.0-2.0) Neutrophils # (Auto) 5.6 10 ^3/uL (1.6-8.6) Lymphocytes # (Auto) 1.0 10 ^3/uL (0.4-5.4) Monocytes # (Auto) 0.8 10 ^3/uL (0-1.3) Eosinophils # (Auto) 0.1 10 ^3/uL (0-0.8) Basophils # (Auto) 0 10 ^3/uL (0-0.2) Nucleated Red Blood Cells 0.2 % Sodium Level 144 mmol/L (136-145) Potassium Level 3.0 mmol/L (3.5-5.1) Chloride Level 103 mmol/L (98-107) Carbon Dioxide Level 30 mmol/L (20-31) Anion Gap 11 (5-15) Blood Urea Nitrogen 33 mg/dL (9-23) Creatinine 3.15 mg/dL (0.700-1.30) Glomerular Filtration Rate Calc 21 mL/min (>90) BUN/Creatinine Ratio 10.5 (10.0-20.0) Serum Glucose 123 mg/dL (74-106) Calcium Level 7.9 mg/dL (8.7-10.4) Total Bilirubin 0.3 mg/dL (0.2-1.0) Aspartate Amino Transferase (AST) 33 U/L (13-40) Alanine Aminotransferase (ALT) 17 U/L (7-40) Alkaline Phosphatase 81 U/L (46-116) Total Protein 5.6 g/dL (5.7-8.2) Albumin 3.0 g/dL (3.2-4.8) Test 04/13/25 15:29 04/13/25 13:14 04/13/25 09:47 04/13/25 04:30 Blood Gas Set Respiration Rate 12.0 Blood Gas Spontaneous Rate 22 Blood Gas EPAP 5 Blood Gas IPAP 12 Prothrombin Time 12.3 sec (9.3-11.8) Prothrombin Time INR 1.18 (0.9-1.15) Activated Partial Thromboplast Time 33.3 SEC (24.5-34.5) Blood Gas Liter Flow 6.00 Phosphorus Level 6.9 mg/dL (2.4-5.1) Magnesium Level 2.1 mg/dL (1.6-2.6) Iron Level 13 ug/dL (65-175) Total Iron Binding Capacity 222 ug/dL (250-425) Percent Iron Saturation 5.9 % (20-55) Ferritin 77.0 ng/mL (22-322) Vitamin D 25-Hydroxy 40.5 ng/mL (30.0-100) Parathyroid Hormone (Intact) 164.0 pg/mL (18.4-80.1) Hepatitis B Surface Antigen Negative (Negative) Hepatitis C Antibody Negative (Negative) Test 04/12/25 16:55 04/12/25 15:13 04/12/25 14:00 Creatine Kinase 699 U/L (46-171) Troponin I High Sensitivity 18 ng/L (</=54) Urine Color Light-yellow (Yellow) Urine Clarity Turbid (Clear) Urine pH 6.0 (5.0-9.0) Urine Specific [place] 1.014 (1.001-1.035) Urine Protein 3+ (Negative) Urine Ketones Negative (Negative) Urine Blood Negative /uL (Negative) Urine Nitrite Negative (Negative) Urine Bilirubin Negative (Negative) Urine Urobilinogen Normal mg/dL (Negative) Urine Leukocyte Esterase Negative /uL (Negative) Urine RBC 2 /hpf (0 - 3) Urine Microscopic WBC < 1 /HPF (0-3) Urine Squamous Epithelial Cells None seen /hpf (<5) Urine Bacteria None seen /hpf (None Seen) Urine Yeast (Budding) Occasional /hpf (None Urine Creatinine 80.27 mg/dL (30.0-125.0) Urine Protein/Creatinine Ratio 6.47 Urine Sodium 42 mmol/L (40-220) Urine Glucose 3+ mg/dL (Normal) Urine Total Protein 519.3 mg/dL (1-14) Lactic Acid Level 1.0 mmol/L (0.4-2.0) B-Type Natriuretic Peptide 1231.62 pg/mL (0-100) Other Laboratory Tests 04/18/25 06:09 Brief Hx & Hospital Course: 65-year-old male presents for evaluation of altered mental status. Patient was noted to be E come progressively more lethargic over the past few day by family members. Patient is currently lethargic and oriented x3. Patient denies chest pain. Reports mild shortness for breath. No unilateral weakness or slurred speech noted. Past Medical History Hypertension, chronic kidney disease, diabetes mellitus, dyslipidemia 04/13: 65-year-old male history CKD hypertension diabetes dyslipidemia, presenting with ALOC. Lethargic were few days. On presentation has acidosis 7.2, chronic anemia 8.6., hyperkalemia 6.0, creatinine 6, BUN azotemia 69, anion gap acidosis, mild transaminitis, BNP elevated 1231. Progression of CKD, likely uremic encephalopathy, head CT benign, renal nephrology consulted plan for starting dialysis. Also having bradycardia, tachypnea, on 6 L mask, hypotensive 170s,. Continuing trial of Lasix 80 IV daily, sliding scale for diabetes,. 04/14: Patient continues to protect airway, yesterday did BiPAP trial which did not improve the acidosis. Acidosis likely from uremic. Patient A&O times 3-4, family at bedside supportive. Continue for plan for IR tunnel cath and then dialysis, we will re-evaluate thereafter. On eval patient is is excessively fatigued and sleepy, no pericardial rub, likely effects of uremia. Can deescalate care to tele after dialysis. 04/15: Nephrology monitoring, plan for outpatient dialysis, we will put social order for set up for chair time. Continuing monitoring, daily CMP. Nephrology following appreciate recommendations. 04/16: Patient on 7 L oxygen, making good urine, continued to get dialysis. We will continue BiPAP at night 05/13, can try patient on Oxymizer to deescalate patient to telemetry if needed. Patient can deescalate to telemetry today. Patient continues to have rhonchi, unclear whether this is pneumonia versus ESRD, we will start ceftriaxone 1 g daily, azithromycin 500 mg daily. We will also start patient on baclofen 10 b.i.d. for lower back pain 04/17: Continuing patient on treatment for possible pneumonia, patient is more alert oriented and interactive since dialysis has started. Waiting for chair time. Likely DC tomorrow with completion course of antibiotics and possibly have care time set up by tomorrow. We will follow up with social workers. Rectal thermometer for unknown reason we will remove. 04/18: Replace potassium, continue ESRD, waiting for chair time, we will ambulate patient with RN, if has trouble we will get PT onboard. If ambulating well we will remove Espinal. Patient on 2 L nasal cannula, we will get room air ABG after trying to wean off. Otherwise continue present management. Antibiotics to finish today. Diagnosis: Acute uremic encephalopathy , now dialysis dependent tunnel catheter for dialysis Acute metabolic encephalopathy, due to above pneumonia, gram neg/gram pos likely Hypokalemia Hypervolemia, diuretic resistant Mild transaminitis Azotemia Anemia, chronic from a normocytic, likely anemia of chronic renal disease Acidosis Anion gap metabolic acidosis Bradycardia Tachypnea Hypertensive crisis History of hypertension CKD Diabetes mellitus type 2 Dyslipidemia plan: -the patient needs sniff, acute PT rehab as there is maximal assist needed but showing rehab potential. - continuing oxygen, to be taken continuous nasal cannula 2 L - no further antibiotics need - stop metformin, take insulin NovoLog R FlexPen, we will do sliding scale insulin only for meals. If take insulin must take meal to avoid hypoglycemia. - Continue dialysis schedule as per chair time schedule, [facility] dialysis - continue other home medications not mentioned above - follow up with PCP to review discharge - follow up with DC clinic 1 week Condition at Discharge: Fair Final Diagnosis/Problems List Acute uremic encephalopathy , now dialysis dependent tunnel catheter for dialysis Acute metabolic encephalopathy, due to above pneumonia, gram neg/gram pos likely Hypokalemia Hypervolemia, diuretic resistant Mild transaminitis Azotemia Anemia, chronic from a normocytic, likely anemia of chronic renal disease Acidosis Anion gap metabolic acidosis Bradycardia Tachypnea Hypertensive crisis History of hypertension CKD Diabetes mellitus type 2 Dyslipidemia Discharge Disposition: Home Discharge Instruct/Medications Scheduled Amlodipine Besylate (Amlodipine Besylate), 10 MG PO DAILY, (Reported) Amlodipine Besylate (Norvasc Tablet), 2 TAB PO DAILY Gabapentin (Gabapentin), 1 CAP PO HS, (Reported) Hctz (Hydrochlorothiazide), 25 MG PO DAILY Hydrochlorothiazide (Hydrochlorothiazide), 25 MG PO DAILY, (Reported) Lisinopril (Lisinopril), 1 TAB PO DAILY, (Reported) Lisinopril (Zestril), 1 TAB PO DAILY Metformin HCl (Metformin Hydrochloride), 1,000 MG PO BID Metformin Hydrochloride (Metformin Hcl), 1,000 MG PO BIDWM, (Reported) Simvastatin (Simvastatin), 20 MG PO HS, (Reported) Simvastatin (Zocor), 0.5 TAB PO DAILY Discharge Statement: "Patient was advised to return to the ER or call 911 if any headaches, dizziness, shortness of breath, chest pain, abdominal pain, bleeding, fevers, or worsening of medical condition. Patient was counseled about treatment plan, medications, possible side effects, patientverbalized understanding. All questions were answered to the best of my ability. This discharge took greater then 30 minutes in planning, reviewing documentation, counseling the patient, and discussing with other team members." ASSESSMENT ASSESSMENT Assessment Date of Service: Apr 18, 2025 Billing Provider: LUAN ROBERTSON MD Common Visit Codes: 66670-ABM/OBS DISCH DAY >30min LUNA ROBERTSON MD Apr 18, 2025 15:03
[2025-04-18] MEDS ORDERED: DEXTROSE (50%) 50ML SYRG IV PRN (16:15)
[2025-04-18] MEDS: HEPARIN SODIUM (PORCINE) 5000 UNITS/ML 1ML VIAL IV ONE (16:45)
--- NOTE | 2025-04-18 16:50 | DVHPN2 ---
Progress Note Date Seen: Apr 18, 2025 Medical Necessity Reason Pt with a Central, PICC or Fol: Yes Objective vital signs Vital Sign Date Time Temp Pulse Resp B/P (MAP) Pulse Ox O2 Delivery O2 Flow Rate FiO2 04/18/25 12:51 98.4 68 18 166/82 (110) 98 98.4 04/18/25 11:35 Nasal Cannula 3.0 04/18/25 11:35 32 Total Intake and Output 04/17/25 04/17/25 04/18/25 15:00 23:00 07:00 Intake Total 410 ml 850 ml 440 ml Output Total 1100 ml 1200 ml Balance 410 ml -250 ml -760 ml medications Current Medications Medications Dose Ordered Sig/Lurdes Route Start Time Stop Time Status Last Admin Dose Admin Ondansetron HCl 4 mg Q4HP PRN IV 04/12/25 19:45 Nitroglycerin 0.4 mg Q5MINP PRN SL 04/12/25 19:45 Morphine Sulfate 2 mg Q30M PRN IV 04/12/25 19:45 Ipratropium [place] 0.5 mg Q6HWA NEB 04/13/25 12:00 04/18/25 11:34 0.5 MG Albuterol 2.5 mg Q6HWA NEB 04/13/25 12:00 04/18/25 11:34 2.5 MG Furosemide 80 mg DAILY IV 04/14/25 10:00 04/18/25 10:02 80 MG Hydralazine HCl 10 mg Q6HP PRN IV 04/14/25 10:15 04/17/25 01:12 10 MG Amlodipine Besylate 10 mg DAILY PO 04/15/25 10:00 04/18/25 10:02 10 MG Calcium Acetate 667 mg TIDWMEALS PO 04/16/25 10:45 04/18/25 12:32 667 MG Hydralazine HCl 50 mg Q8HR PO 04/16/25 14:00 04/18/25 05:59 50 MG Ceftriaxone Sodium 50 ml @ 100 mls/hr DAILY@09 IV 04/16/25 14:00 04/18/25 08:31 100 MLS/HR Azithromycin 250 ml @ 125 mls/hr DAILY IV 04/16/25 15:00 04/18/25 10:02 125 MLS/HR Baclofen 10 mg BID PO 04/16/25 22:00 04/18/25 10:02 10 MG Acetaminophen 650 mg Q4HP PRN PO 04/16/25 14:00 Acetaminophen/ Hydrocodone Bitart 1 tab Q6HP PRN PO 04/16/25 14:00 Diagnostic Test (Pha) 1 strip ACHS 04/18/25 17:00 UNV Insulin Human Regular ACHS SC 04/18/25 17:00 UNV Dextrose 50 ml UD PRN IV 04/18/25 16:15 UNV laboratory and microbiology Laboratory Tests 04/18/25 06:09 Test 04/18/25 06:09 Range/Units Serum Glucose 123 H 74-106 mg/dL Microbiology Date/Time Source Procedure Growth Status 04/12/25 14:13 Blood Blood Culture - Final NO GROWTH AFTER 5 DAYS OF INCUBATION. 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
[2025-04-18] MEDS: InsuLIN REG 1unit/0.01ml Soln (100units/ml) SC SCH (17:00)
[2025-04-18] MEDS: ACCU-CHEK COMFORT CURVE STRIP VI SCH (17:00)
[2025-04-19] VITALS (15 sets, daily range): BP systolic 152–178; BP diastolic 69–86; PULSE 64–75; RESP 14–20; TEMP 98–98.4; O2SAT 92–100
[2025-04-19 06:50] LABS: Anion Gap 12 (5-15); Carbon Dioxide 31 mmol/L (20-31); Chloride 105 mmol/L (98-107)
[2025-04-19 06:56] LABS: BUN/Creatinine Ratio 7.9 (10.0-20.0); Blood Urea Nitrogen 20 mg/dL (9-23)
[2025-04-19 06:57] LABS: Calcium 8.0 mg/dL (8.7-10.4); Glucose 120 mg/dL (74-106); Potassium 3.2 mmol/L (3.5-5.1); Sodium 148 mmol/L (136-145)
--- NOTE | 2025-04-19 10:27 | DVHDS2 ---
Discharge Summary Date of Admission Apr 12, 2025 at 19:35 Date of Discharge: Apr 19, 2025 Labs/Diagnostic Data: Laboratory Results Test 04/19/25 06:26 04/19/25 05:44 04/18/25 10:16 04/18/25 06:09 POC Glucose 129 mg/dl (70-106) Sodium Level 148 mmol/L (136-145) Potassium Level 3.2 mmol/L (3.5-5.1) Chloride Level 105 mmol/L (98-107) Carbon Dioxide Level 31 mmol/L (20-31) Anion Gap 12 (5-15) Blood Urea Nitrogen 20 mg/dL (9-23) Creatinine 2.52 mg/dL (0.700-1.30) Glomerular Filtration Rate Calc 28 mL/min (>90) BUN/Creatinine Ratio 7.9 (10.0-20.0) Serum Glucose 120 mg/dL (74-106) Calcium Level 8.0 mg/dL (8.7-10.4) Blood Gas Specimen Type Arterial Blood Gas Sample Site Right radial Blood Gas Patient Temperature 37.0 Arterial Blood Date Drawn [id number] Arterial Blood pH 7.418 (7.350-7.450) Arterial Blood Partial Pressure CO2 46.7 mmHg (35.0-48.0) Arterial Blood Partial Pressure O2 41.0 mmHg (83.0-108.0) Arterial Blood HCO3 29.5 mmol/L (21.0-28.0) Arterial Blood Oxygen Saturation 77.1 % (94.0-98.0) Arterial Blood Base Excess 4.4 mmol/L (-2.0-3.0) Arterial Blood Oxyhemoglobin 76.0 % (94.0-98.0) Arterial Blood Carboxyhemoglobin 1.1 % (0.5-1.5) Arterial Blood Methemoglobin 0.3 % (0.0-1.5) Andrzej Test Yes Blood Gas Total Hemoglobin 8.80 g/dL (13.5-17.5) Blood Gas Modality Room air FiO2 % 21.0 Blood Gas Critical Value Read Back yes Blood Gas Notified Whom Brandy quiroz Blood Gas Notified Time [id number] Blood Gas Notified By ripsaw operator lavon estrada White Blood Count 7.5 10^3/uL (4.4-10.8) Red Blood Count 3.35 10^6/uL (4.5-5.90) Hemoglobin 8.6 g/dL (13.5-17.5) Hematocrit 26.1 % (41.0-53.0) Mean Corpuscular Volume 78.0 fL (80.0-100.0) Mean Corpuscular Hemoglobin 25.6 pg (28.0-32.0) Mean Corpuscular Hemoglobin Concent 32.8 g/dL (32.0-36.0) Red Cell Distribution Width 17.3 % (11.8-14.3) Platelet Count 273 10^3/uL (140-450) Mean Platelet Volume 8.5 fL (6.9-10.8) Neutrophils (%) (Auto) 74.7 % (37.0-80.0) Lymphocytes (%) (Auto) 13.7 % (10.0-50.0) Monocytes (%) (Auto) 10.6 % (0.0-12.0) Eosinophils (%) (Auto) 0.7 % (0.0-7.0) Basophils (%) (Auto) 0.3 % (0.0-2.0) Neutrophils # (Auto) 5.6 10 ^3/uL (1.6-8.6) Lymphocytes # (Auto) 1.0 10 ^3/uL (0.4-5.4) Monocytes # (Auto) 0.8 10 ^3/uL (0-1.3) Eosinophils # (Auto) 0.1 10 ^3/uL (0-0.8) Basophils # (Auto) 0 10 ^3/uL (0-0.2) Nucleated Red Blood Cells 0.2 % Test 04/17/25 06:27 04/13/25 15:29 04/13/25 13:14 04/13/25 09:47 Total Bilirubin 0.3 mg/dL (0.2-1.0) Aspartate Amino Transferase (AST) 33 U/L (13-40) Alanine Aminotransferase (ALT) 17 U/L (7-40) Alkaline Phosphatase 81 U/L (46-116) Total Protein 5.6 g/dL (5.7-8.2) Albumin 3.0 g/dL (3.2-4.8) Blood Gas Set Respiration Rate 12.0 Blood Gas Spontaneous Rate 22 Blood Gas EPAP 5 Blood Gas IPAP 12 Prothrombin Time 12.3 sec (9.3-11.8) Prothrombin Time INR 1.18 (0.9-1.15) Activated Partial Thromboplast Time 33.3 SEC (24.5-34.5) Blood Gas Liter Flow 6.00 Test 04/13/25 04:30 04/12/25 16:55 04/12/25 15:13 04/12/25 14:00 Phosphorus Level 6.9 mg/dL (2.4-5.1) Magnesium Level 2.1 mg/dL (1.6-2.6) Iron Level 13 ug/dL (65-175) Total Iron Binding Capacity 222 ug/dL (250-425) Percent Iron Saturation 5.9 % (20-55) Ferritin 77.0 ng/mL (22-322) Vitamin D 25-Hydroxy 40.5 ng/mL (30.0-100) Parathyroid Hormone (Intact) 164.0 pg/mL (18.4-80.1) Hepatitis B Surface Antigen Negative (Negative) Hepatitis C Antibody Negative (Negative) Creatine Kinase 699 U/L (46-171) Troponin I High Sensitivity 18 ng/L (</=54) Urine Color Light-yellow (Yellow) Urine Clarity Turbid (Clear) Urine pH 6.0 (5.0-9.0) Urine Specific [place] 1.014 (1.001-1.035) Urine Protein 3+ (Negative) Urine Ketones Negative (Negative) Urine Blood Negative /uL (Negative) Urine Nitrite Negative (Negative) Urine Bilirubin Negative (Negative) Urine Urobilinogen Normal mg/dL (Negative) Urine Leukocyte Esterase Negative /uL (Negative) Urine RBC 2 /hpf (0 - 3) Urine Microscopic WBC < 1 /HPF (0-3) Urine Squamous Epithelial Cells None seen /hpf (<5) Urine Bacteria None seen /hpf (None Seen) Urine Yeast (Budding) Occasional /hpf (None Urine Creatinine 80.27 mg/dL (30.0-125.0) Urine Protein/Creatinine Ratio 6.47 Urine Sodium 42 mmol/L (40-220) Urine Glucose 3+ mg/dL (Normal) Urine Total Protein 519.3 mg/dL (1-14) Lactic Acid Level 1.0 mmol/L (0.4-2.0) B-Type Natriuretic Peptide 1231.62 pg/mL (0-100) Other Laboratory Tests 04/19/25 05:44 04/18/25 06:09 Brief Hx & Hospital Course: 65-year-old male presents for evaluation of altered mental status. Patient was noted to be E come progressively more lethargic over the past few day by family members. Patient is currently lethargic and oriented x3. Patient denies chest pain. Reports mild shortness for breath. No unilateral weakness or slurred speech noted. Past Medical History Hypertension, chronic kidney disease, diabetes mellitus, dyslipidemia 04/13: 65-year-old male history CKD hypertension diabetes dyslipidemia, presenting with ALOC. Lethargic were few days. On presentation has acidosis 7.2, chronic anemia 8.6., hyperkalemia 6.0, creatinine 6, BUN azotemia 69, anion gap acidosis, mild transaminitis, BNP elevated 1231. Progression of CKD, likely uremic encephalopathy, head CT benign, renal nephrology consulted plan for starting dialysis. Also having bradycardia, tachypnea, on 6 L mask, hypotensive 170s,. Continuing trial of Lasix 80 IV daily, sliding scale for diabetes,. 04/14: Patient continues to protect airway, yesterday did BiPAP trial which did not improve the acidosis. Acidosis likely from uremic. Patient A&O times 3-4, family at bedside supportive. Continue for plan for IR tunnel cath and then dialysis, we will re-evaluate thereafter. On eval patient is is excessively fatigued and sleepy, no pericardial rub, likely effects of uremia. Can deescalate care to tele after dialysis. 04/15: Nephrology monitoring, plan for outpatient dialysis, we will put social order for set up for chair time. Continuing monitoring, daily CMP. Nephrology following appreciate recommendations. 04/16: Patient on 7 L oxygen, making good urine, continued to get dialysis. We will continue BiPAP at night 05/13, can try patient on Oxymizer to deescalate patient to telemetry if needed. Patient can deescalate to telemetry today. Patient continues to have rhonchi, unclear whether this is pneumonia versus ESRD, we will start ceftriaxone 1 g daily, azithromycin 500 mg daily. We will also start patient on baclofen 10 b.i.d. for lower back pain 04/17: Continuing patient on treatment for possible pneumonia, patient is more alert oriented and interactive since dialysis has started. Waiting for chair time. Likely DC tomorrow with completion course of antibiotics and possibly have care time set up by tomorrow. We will follow up with social workers. Rectal thermometer for unknown reason we will remove. 04/18: Replace potassium, continue ESRD, waiting for chair time, we will ambulate patient with RN, if has trouble we will get PT onboard. If ambulating well we will remove Espinal. Patient on 2 L nasal cannula, we will get room air ABG after trying to wean off. Otherwise continue present management. Antibiotics to finish today. 04/19.: Discharge was held yesterday because patient does not have oxygen and was wanting to go home despite having max assist unable to move and in my opinion needed rehab acute PT rehab. Today patient is in agreement and agreement, oxygen has been delivered. We will keep Espinal inserted as patient has DTI and is bed bound due to severe weakness. We will continue settling patient has chair time for HD. Antibiotics are finished. Patient is stable for discharge vital signs stable. Patient to go to SNF for acute PT rehab, continue oxygen 2 L nasal cannula continuous, set up chair time for dialysis, continue other home medications, no more metformin, for diabetes now we will need insulin sliding scale at home and while at SNF for PT rehab, continue other medications, close follow up with PCP. Diagnosis: Acute uremic encephalopathy , now dialysis dependent tunnel catheter for dialysis Acute metabolic encephalopathy, due to above pneumonia, gram neg/gram pos likely Hypokalemia Hypervolemia, diuretic resistant Mild transaminitis Azotemia Anemia, chronic from a normocytic, likely anemia of chronic renal disease Acidosis Anion gap metabolic acidosis Bradycardia Tachypnea Hypertensive crisis History of hypertension CKD Diabetes mellitus type 2 Dyslipidemia plan: -the patient needs sniff, acute PT rehab as there is maximal assist needed but showing rehab potential. - continuing oxygen, to be taken continuous nasal cannula 2 L - no further antibiotics need - stop metformin, take insulin NovoLog R FlexPen, we will do sliding scale insulin only for meals. If take insulin must take meal to avoid hypoglycemia. - Continue dialysis schedule as per chair time schedule, [facility] dialysis - continue other home medications not mentioned above - follow up with PCP to review discharge - follow up with DC clinic 1 week Condition at Discharge: Fair Final Diagnosis/Problems List Acute uremic encephalopathy , now dialysis dependenttunnel catheter for dialysisAcute metabolic encephalopathy, due to abovepneumonia, gram neg/gram pos likelyHypokalemia Hypervolemia, diuretic resistant Mild transaminitis AzotemiaAnemia, chronic from a normocytic, likely anemia of chronic renal diseaseAcidosisAnion gap metabolic acidosisBradycardia Tachypnea Hypertensive crisisHistory of hypertension CKD Diabetes mellitus type 2 Dyslipidemia Discharge Disposition: [facility] Facility Discharge Instruct/Medications Diet: Renal Activity: No Restrictions, As Tolerated Follow Up/Referral: below Medications: below Scheduled Amlodipine Besylate (Amlodipine Besylate), 10 MG PO DAILY, (Reported) Amlodipine Besylate (Norvasc Tablet), 2 TAB PO DAILY Gabapentin (Gabapentin), 1 CAP PO HS, (Reported) Hctz (Hydrochlorothiazide), 25 MG PO DAILY Hydrochlorothiazide (Hydrochlorothiazide), 25 MG PO DAILY, (Reported) Lisinopril (Lisinopril), 1 TAB PO DAILY, (Reported) Lisinopril (Zestril), 1 TAB PO DAILY Metformin HCl (Metformin Hydrochloride), 1,000 MG PO BID Metformin Hydrochloride (Metformin Hcl), 1,000 MG PO BIDWM, (Reported) Simvastatin (Simvastatin), 20 MG PO HS, (Reported) Simvastatin (Zocor), 0.5 TAB PO DAILY Discharge Statement: "Patient was advised to return to the ER or call 911 if any headaches, dizziness, shortness of breath, chest pain, abdominal pain, bleeding, fevers, or worsening of medical condition. Patient was counseled about treatment plan, medications, possible side effects, patientverbalized understanding. All questions were answered to the best of my ability. This discharge took greater then 30 minutes in planning, reviewing documentation, counseling the patient, and discussing with other team members." Date of Service: Apr 19, 2025 Billing Provider: LUNA ROBERTSON MD Common Visit Codes: 31706-ZAH/OBS DISCH DAY >30min LUNA ROBERTSON MD Apr 19, 2025 10:26
--- NOTE | 2025-04-19 14:35 | DVHPN2 ---
Progress Note Date Seen: Apr 19, 2025 Medical Necessity Reason Pt with a Central, PICC or Fol: Yes Subjective Patient reports: No new complaints Review of Systems: RESPIRATORY:Abnormal Objective vital signs Vital Sign Date Time Temp Pulse Resp B/P (MAP) Pulse Ox O2 Delivery O2 Flow Rate FiO2 04/19/25 13:24 98.4 70 18 178/81 (113) 98 98.4 04/19/25 11:41 Nasal Cannula 2.0 04/19/25 11:41 28 Total Intake and Output 04/18/25 04/18/25 04/19/25 15:00 23:00 07:00 Intake Total 300 ml 600 ml 380 ml Output Total 1200 ml 350 ml Balance 300 ml -600 ml 30 ml medications Current Medications Medications Dose Ordered Sig/Lurdes Route Start Time Stop Time Status Last Admin Dose Admin Ondansetron HCl 4 mg Q4HP PRN IV 04/12/25 19:45 Nitroglycerin 0.4 mg Q5MINP PRN SL 04/12/25 19:45 Morphine Sulfate 2 mg Q30M PRN IV 04/12/25 19:45 Ipratropium [place] 0.5 mg Q6HWA NEB 04/13/25 12:00 04/19/25 11:41 0.5 MG Albuterol 2.5 mg Q6HWA NEB 04/13/25 12:00 04/19/25 11:41 2.5 MG Furosemide 80 mg DAILY IV 04/14/25 10:00 04/19/25 09:56 80 MG Hydralazine HCl 10 mg Q6HP PRN IV 04/14/25 10:15 04/17/25 01:12 10 MG Amlodipine Besylate 10 mg DAILY PO 04/15/25 10:00 04/19/25 09:58 10 MG Calcium Acetate 667 mg TIDWMEALS PO 04/16/25 10:45 04/19/25 13:36 667 MG Hydralazine HCl 50 mg Q8HR PO 04/16/25 14:00 04/19/25 06:28 50 MG Ceftriaxone Sodium 50 ml @ 100 mls/hr DAILY@09 IV 04/16/25 14:00 04/19/25 09:54 100 MLS/HR Azithromycin 250 ml @ 125 mls/hr DAILY IV 04/16/25 15:00 04/19/25 09:51 125 MLS/HR Baclofen 10 mg BID PO 04/16/25 22:00 04/19/25 09:59 10 MG Acetaminophen 650 mg Q4HP PRN PO 04/16/25 14:00 Acetaminophen/ Hydrocodone Bitart 1 tab Q6HP PRN PO 04/16/25 14:00 Diagnostic Test (Pha) 1 strip ACHS 04/18/25 17:00 04/19/25 11:40 1 STRIP Insulin Human Regular ACHS SC 04/18/25 17:00 04/19/25 11:46 3 UNITS Dextrose 50 ml UD PRN IV 04/18/25 16:15 laboratory and microbiology Laboratory Tests 04/19/25 05:44 04/18/25 06:09 Test 04/19/25 05:44 Range/Units Serum Glucose 120 H 74-106 mg/dL Microbiology Date/Time Source Procedure Growth Status 04/12/25 14:13 Blood Blood Culture - Final NO GROWTH AFTER 5 DAYS OF INCUBATION. 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
[2025-04-19] MEDS: HYDROcodone-ACET 10/325MG TAB PO PRN (22:10)
[2025-04-20] VITALS (14 sets, daily range): BP systolic 158–195; BP diastolic 73–103; PULSE 63–79; RESP 16–18; TEMP 97.2–97.7; O2SAT 94–100
[2025-04-20 06:02] LABS: Anion Gap 11 (5-15); Carbon Dioxide 30 mmol/L (20-31); Chloride 104 mmol/L (98-107); Sodium 145 mmol/L (136-145)
[2025-04-20 06:03] LABS: Potassium 3.2 mmol/L (3.5-5.1)
[2025-04-20 06:04] LABS: Calcium 7.7 mg/dL (8.7-10.4)
[2025-04-20 06:08] LABS: BUN/Creatinine Ratio 7.9 (10.0-20.0)
[2025-04-20 06:11] LABS: Blood Urea Nitrogen 25 mg/dL (9-23); Glucose 155 mg/dL (74-106)
--- NOTE | 2025-04-20 17:30 | DVHPN2 ---
Progress Note Date Seen: Apr 20, 2025 Medical Necessity Reason Pt with a Central, PICC or Fol: Yes Subjective Patient reports: No new complaints Review of Systems: Deferred Objective vital signs Vital Sign Date Time Temp Pulse Resp B/P (MAP) Pulse Ox O2 Delivery O2 Flow Rate FiO2 04/20/25 14:25 181/90 04/20/25 13:00 97.6 63 17 99 97.6 04/20/25 12:08 2.0 04/20/25 12:08 Nasal Cannula* 28 Total Intake and Output 04/19/25 04/19/25 04/20/25 15:00 23:00 07:00 Intake Total 300 ml 350 ml 590 ml Output Total 450 ml 325 ml Balance 300 ml -100 ml 265 ml medications Current Medications Medications Dose Ordered Sig/Lurdes Route Start Time Stop Time Status Last Admin Dose Admin Ondansetron HCl 4 mg Q4HP PRN IV 04/12/25 19:45 Nitroglycerin 0.4 mg Q5MINP PRN SL 04/12/25 19:45 Morphine Sulfate 2 mg Q30M PRN IV 04/12/25 19:45 Ipratropium [place] 0.5 mg Q6HWA NEB 04/13/25 12:00 04/20/25 12:07 0.5 MG Albuterol 2.5 mg Q6HWA NEB 04/13/25 12:00 04/20/25 12:07 2.5 MG Furosemide 80 mg DAILY IV 04/14/25 10:00 04/19/25 09:56 80 MG Hydralazine HCl 10 mg Q6HP PRN IV 04/14/25 10:15 04/17/25 01:12 10 MG Amlodipine Besylate 10 mg DAILY PO 04/15/25 10:00 04/20/25 09:23 10 MG Calcium Acetate 667 mg TIDWMEALS PO 04/16/25 10:45 04/20/25 09:22 667 MG Hydralazine HCl 50 mg Q8HR PO 04/16/25 14:00 04/20/25 14:25 50 MG Ceftriaxone Sodium 50 ml @ 100 mls/hr DAILY@09 IV 04/16/25 14:00 04/20/25 09:22 100 MLS/HR Azithromycin 250 ml @ 125 mls/hr DAILY IV 04/16/25 15:00 04/20/25 09:23 125 MLS/HR Baclofen 10 mg BID PO 04/16/25 22:00 04/20/25 09:23 10 MG Acetaminophen 650 mg Q4HP PRN PO 04/16/25 14:00 Acetaminophen/ Hydrocodone Bitart 1 tab Q6HP PRN PO 04/16/25 14:00 04/19/25 22:10 1 TAB Diagnostic Test (Pha) 1 strip ACHS 04/18/25 17:00 04/20/25 16:47 1 STRIP Insulin Human Regular ACHS SC 04/18/25 17:00 04/20/25 16:47 3 UNITS Dextrose 50 ml UD PRN IV 04/18/25 16:15 laboratory and microbiology Laboratory Tests 04/20/25 05:16 04/18/25 06:09 Test 04/20/25 05:16 Range/Units Serum Glucose 155 H 74-106 mg/dL Microbiology Date/Time Source Procedure Growth Status 04/12/25 14:13 Blood Blood Culture - Final NO GROWTH AFTER 5 DAYS OF INCUBATION. 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
[2025-04-20] MEDS: FERROUS SULFATE 325mg EC TAB PO SCH (17:59)
[2025-04-20] MEDS: LOSARTAN POTASSIUM 50 MG TAB PO ONE (17:59)
[2025-04-20] MEDS: ONDANSETRON HCL 4 MG/2 ML VIAL IV PRN (20:07)
[2025-04-20] MEDS ORDERED: EPOETIN ALFA-EPBX 10,000 UNIT/1ML VIAL SC ONE (21:00)
[2025-04-21] VITALS (15 sets, daily range): BP systolic 135–170; BP diastolic 65–81; PULSE 65–76; RESP 16–19; TEMP 36.4; O2SAT 89–100
[2025-04-21] MEDS: FUROSEMIDE 40 MG/4 ML VIAL IV SCH (09:48)
--- NOTE | 2025-04-21 09:48 | DVHPN2 ---
Subjective Note for 04/20/2025 Reviewed: H&P Changes from previous H/P or p: No Changes General: Per HPI Objective Vitals Vital Signs Date Time Temp Pulse Resp B/P (MAP) Pulse Ox O2 Delivery O2 Flow Rate FiO2 04/21/25 08:00 18 94 Nasal Cannula* 2 28 04/21/25 07:25 36.4 04/21/25 06:30 155/72 04/21/25 06:18 74 Intake/Output Intake and Output 04/21/25 07:00 Intake Total 920 ml Output Total 450 ml Balance 470 ml Intake Oral 920 ml Output Urine Total 450 ml Exam GEN: Ill-appearing, obese patient, alert, oriented only to self, HEENT: NC/AT; MMM. CV: RRR, no m/r/g. LUNGS: CTAB, no w/r/c. ABD: Soft, NT/ND, NBS, no masses or organomegaly. EXT: skin Warm, well perfused. no rashes. No clubbing, cyanosis, or edema. Medications Current Medications Medications Dose Ordered Sig/Lurdes Route Start Time Stop Time Status Last Admin Dose Admin Ondansetron HCl 4 mg Q4HP PRN IV 04/12/25 19:45 04/20/25 20:07 4 MG Nitroglycerin 0.4 mg Q5MINP PRN SL 04/12/25 19:45 Morphine Sulfate 2 mg Q30M PRN IV 04/12/25 19:45 Ipratropium [place] [address] [facility] 04/13/25 12:00 04/21/25 06:07 0.5 MG Albuterol 2.[address] [facility] 04/13/25 12:00 04/21/25 06:07 2.5 MG Hydralazine HCl 10 mg Q6HP PRN IV 04/14/25 10:15 04/21/25 03:10 10 MG Amlodipine Besylate 10 mg DAILY PO 04/15/25 10:00 04/20/25 09:23 10 MG Calcium Acetate 667 mg TIDWMEALS PO 04/16/25 10:45 04/21/25 08:17 667 MG Hydralazine HCl 50 mg Q8HR PO 04/16/25 14:00 04/21/25 06:30 50 MG Ceftriaxone Sodium 50 ml @ 100 mls/hr DAILY@09 IV 04/16/25 14:00 04/21/25 09:06 100 MLS/HR Azithromycin 250 ml @ 125 mls/hr DAILY IV 04/16/25 15:00 04/20/25 09:23 125 MLS/HR Baclofen 10 mg BID PO 04/16/25 22:00 04/20/25 22:38 10 MG Acetaminophen 650 mg Q4HP PRN PO 04/16/25 14:00 Acetaminophen/ Hydrocodone Bitart 1 tab Q6HP PRN PO 04/16/25 14:00 04/19/25 22:10 1 TAB Diagnostic Test (Pha) 1 strip ACHS 04/18/25 17:00 04/21/25 05:37 1 STRIP Insulin Human Regular ACHS SC 04/18/25 17:00 04/20/25 22:40 3 UNITS Dextrose 50 ml UD PRN IV 04/18/25 16:15 Losartan Potassium 100 mg DAILY PO 04/21/25 10:00 Furosemide 40 mg DAILY IV 04/21/25 10:00 Ferrous Sulfate 325 mg BIDWM PO 04/20/25 18:00 04/21/25 08:17 325 MG Laboratory Results Laboratory Tests 04/18/25 06:09 04/20/25 05:16 Urinalysis Test 04/12/25 15:13 Urine Color Light-yellow (Yellow) Urine Clarity Turbid (Clear) H Urine pH 6.0 (5.0-9.0) Urine Specific [place] 1.014 (1.001-1.035) Urine Protein 3+ (Negative) H Urine Ketones Negative (Negative) Urine Blood Negative /uL (Negative) Urine Nitrite Negative (Negative) Urine Bilirubin Negative (Negative) Urine Urobilinogen Normal mg/dL (Negative) Urine Leukocyte Esterase Negative /uL (Negative) Urine RBC 2 /hpf (0 - 3) Urine Microscopic WBC < 1 /HPF (0-3) Urine Squamous Epithelial Cells None seen /hpf (<5) Urine Bacteria None seen /hpf (None Seen) Urine Yeast (Budding) Occasional /hpf (None Urine Creatinine 80.27 mg/dL (30.0-125.0) Urine Protein/Creatinine Ratio 6.47 Urine Sodium 42 mmol/L (40-220) Urine Glucose 3+ mg/dL (Normal) H Urine Total Protein 519.3 mg/dL (1-14) H Microbiology Microbiology Date/Time Source Procedure Growth Status 04/12/25 14:13 Blood Blood Culture - Final NO GROWTH AFTER 5 DAYS OF INCUBATION. Complete Labs and/or images reviewed: Labs reviewed by me, Image(s) reviewed by me Assessment/Plan Assessment/Plan Note for 04/20/2025 65-year-old male presents for evaluation of altered mental status. Patient was noted to be E come progressively more lethargic over the past few day by family members. Patient is currently lethargic and oriented x3. Patient denies chest pain. Reports mild shortness for breath. No unilateral weakness or slurred speech noted. Past Medical History Hypertension, chronic kidney disease, diabetes mellitus, dyslipidemia 04/13: 65-year-old male history CKD hypertension diabetes dyslipidemia, presenting with ALOC. Lethargic were few days. On presentation has acidosis 7.2, chronic anemia 8.6., hyperkalemia 6.0, creatinine 6, BUN azotemia 69, anion gap acidosis, mild transaminitis, BNP elevated 1231. Progression of CKD, likely uremic encephalopathy, head CT benign, renal nephrology consulted plan for starting dialysis. Also having bradycardia, tachypnea, on 6 L mask, hypotensive 170s,. Continuing trial of Lasix 80 IV daily, sliding scale for diabetes,. 04/14: Patient continues to protect airway, yesterday did BiPAP trial which did not improve the acidosis. Acidosis likely from uremic. Patient A&O times 3-4, family at bedside supportive. Continue for plan for IR tunnel cath and then dialysis, we will re-evaluate thereafter. On eval patient is is excessively fatigued and sleepy, no pericardial rub, likely effects of uremia. Can deescalate care to tele after dialysis. 04/15: Nephrology monitoring, plan for outpatient dialysis, we will put social order for set up for chair time. Continuing monitoring, daily CMP. Nephrology following appreciate recommendations. 04/16: Patient on 7 L oxygen, making good urine, continued to get dialysis. We will continue BiPAP at night 05/13, can try patient on Oxymizer to deescalate patient to telemetry if needed. Patient can deescalate to telemetry today. Patient continues to have rhonchi, unclear whether this is pneumonia versus ESRD, we will start ceftriaxone 1 g daily, azithromycin 500 mg daily. We will also start patient on baclofen 10 b.i.d. for lower back pain 04/17: Continuing patient on treatment for possible pneumonia, patient is more alert oriented and interactive since dialysis has started. Waiting for chair time. Likely DC tomorrow with completion course of antibiotics and possibly have care time set up by tomorrow. We will follow up with social workers. Rectal thermometer for unknown reason we will remove. 04/18: Replace potassium, continue ESRD, waiting for chair time, we will ambulate patient with RN, if has trouble we will get PT onboard. If ambulating well we will remove Espinal. Patient on 2 L nasal cannula, we will get room air ABG after trying to wean off. Otherwise continue present management. Antibiotics to finish today. - tentative discharge plan: the patient needs sniff, acute PT rehab as there is maximal assist needed but showing rehab potential. continuing oxygen, to be taken continuous nasal cannula 2 L / no further antibiotics need. stop metformin, take insulin NovoLog R FlexPen, we will do sliding scale insulin only for meals. If take insulin must take meal to avoid hypoglycemia.. Continue dialysis schedule as per chair time schedule, [facility] dialysis. continue other home medications not mentioned above. follow up with PCP to review discharge. follow up with DC clinic 1 week. - patient having maximum assist, need to finalize insulin need for home. We will hold off discharge today. Patient likely needs SNF PT rehab but is in agreement with his needs and wants to go home. We will have family meeting with son. We will change insulin to mild a.c. HS. 04/19: Patient discharge see DC summary 04/20: Waiting for SNF PT placement. Continue continuous cannula 2 L at [facility],. Diagnosis: Acute uremic encephalopathy , now dialysis dependent tunnel catheter for dialysis Acute metabolic encephalopathy, due to above pneumonia, gram neg/gram pos likely Hypokalemia Hypervolemia, diuretic resistant Mild transaminitis Azotemia Anemia, chronic from a normocytic, likely anemia of chronic renal disease Acidosis Anion gap metabolic acidosis Bradycardia Tachypnea Hypertensive crisis History of hypertension CKD Diabetes mellitus type 2 Dyslipidemia Plan: Trial Lasix 80 IV daily Nephrology consult Order for IR tunneled catheter insertion Trial BiPAP Per nephrology, plan for dialysis Continue other home medications NPO status Fall risk Bedrest continues Oxygen maintain saturation more than 90%, RT to titrate Haldol for agitation prn , avoiding any use of benzodiazepines or respiratory sedatives Tele Full code Note for 04/20/2025 Plan discussed with: Patient Date of Service: Apr 20, 2025 Billing Provider: LUNA ROBERTSON MD Common Visit Codes: [id number] INP/OBS CARE(MOD) LUNA ROBERTSON MD Apr 21, 2025 09:48
[2025-04-21] MEDS: LOSARTAN POTASSIUM 50 MG TAB PO SCH (09:49)
--- NOTE | 2025-04-21 09:49 | DVHPN2 ---
Reviewed: H&P Changes from previous H/P or p: No Changes General: Per HPI Objective Vitals Vital Signs Date Time Temp Pulse Resp B/P (MAP) Pulse Ox O2 Delivery O2 Flow Rate FiO2 04/21/25 08:00 18 94 Nasal Cannula* 2 28 04/21/25 07:25 36.4 04/21/25 06:30 155/72 04/21/25 06:18 74 Intake/Output Intake and Output 04/21/25 07:00 Intake Total 920 ml Output Total 450 ml Balance 470 ml Intake Oral 920 ml Output Urine Total 450 ml Exam GEN: Ill-appearing, obese patient, alert, oriented only to self, HEENT: NC/AT; MMM. CV: RRR, no m/r/g. LUNGS: CTAB, no w/r/c. ABD: Soft, NT/ND, NBS, no masses or organomegaly. EXT: skin Warm, well perfused. no rashes. No clubbing, cyanosis, or edema. Medications Current Medications Medications Dose Ordered Sig/Lurdes Route Start Time Stop Time Status Last Admin Dose Admin Ondansetron HCl 4 mg Q4HP PRN IV 04/12/25 19:45 04/20/25 20:07 4 MG Nitroglycerin 0.4 mg Q5MINP PRN SL 04/12/25 19:45 Morphine Sulfate 2 mg Q30M PRN IV 04/12/25 19:45 Ipratropium [place] 0.5 mg Q6HWA [facility] 04/13/25 12:00 04/21/25 06:07 0.5 MG Albuterol 2.5 mg Q6HWA [facility] 04/13/25 12:00 04/21/25 06:07 2.5 MG Hydralazine HCl 10 mg Q6HP PRN IV 04/14/25 10:15 04/21/25 03:10 10 MG Amlodipine Besylate 10 mg DAILY PO 04/15/25 10:00 04/20/25 09:23 10 MG Calcium Acetate 667 mg TIDWMEALS PO 04/16/25 10:45 04/21/25 08:17 667 MG Hydralazine HCl 50 mg Q8HR PO 04/16/25 14:00 04/21/25 06:30 50 MG Ceftriaxone Sodium 50 ml @ 100 mls/hr DAILY@09 IV 04/16/25 14:00 04/21/25 09:06 100 MLS/HR Azithromycin 250 ml @ 125 mls/hr DAILY IV 04/16/25 15:00 04/20/25 09:23 125 MLS/HR Baclofen 10 mg BID PO 04/16/25 22:00 04/20/25 22:38 10 MG Acetaminophen 650 mg Q4HP PRN PO 04/16/25 14:00 Acetaminophen/ Hydrocodone Bitart 1 tab Q6HP PRN PO 04/16/25 14:00 04/19/25 22:10 1 TAB Diagnostic Test (Pha) 1 strip ACHS 04/18/25 17:00 04/21/25 05:37 1 STRIP Insulin Human Regular ACHS SC 04/18/25 17:00 04/20/25 22:40 3 UNITS Dextrose 50 ml UD PRN IV 04/18/25 16:15 Losartan Potassium 100 mg DAILY PO 04/21/25 10:00 Furosemide 40 mg DAILY IV 04/21/25 10:00 Ferrous Sulfate 325 mg BIDWM PO 04/20/25 18:00 04/21/25 08:17 325 MG Laboratory Results Laboratory Tests 04/18/25 06:09 04/20/25 05:16 Urinalysis Test 04/12/25 15:13 Urine Color Light-yellow (Yellow) Urine Clarity Turbid (Clear) H Urine pH 6.0 (5.0-9.0) Urine Specific [place] 1.014 (1.001-1.035) Urine Protein 3+ (Negative) H Urine Ketones Negative (Negative) Urine Blood Negative /uL (Negative) Urine Nitrite Negative (Negative) Urine Bilirubin Negative (Negative) Urine Urobilinogen Normal mg/dL (Negative) Urine Leukocyte Esterase Negative /uL (Negative) Urine RBC 2 /hpf (0 - 3) Urine Microscopic WBC < 1 /HPF (0-3) Urine Squamous Epithelial Cells None seen /hpf (<5) Urine Bacteria None seen /hpf (None Seen) Urine Yeast (Budding) Occasional /hpf (None Urine Creatinine 80.27 mg/dL (30.0-125.0) Urine Protein/Creatinine Ratio 6.47 Urine Sodium 42 mmol/L (40-220) Urine Glucose 3+ mg/dL (Normal) H Urine Total Protein 519.3 mg/dL (1-14) H Microbiology Microbiology Date/Time Source Procedure Growth Status 04/12/25 14:13 Blood Blood Culture - Final NO GROWTH AFTER 5 DAYS OF INCUBATION. Complete Labs and/or images reviewed: Labs reviewed by me, Image(s) reviewed by me Assessment/Plan Assessment/Plan 65-year-old male presents for evaluation of altered mental status. Patient was noted to be E come progressively more lethargic over the past few day by family members. Patient is currently lethargic and oriented x3. Patient denies chest pain. Reports mild shortness for breath. No unilateral weakness or slurred speech noted. Past Medical History Hypertension, chronic kidney disease, diabetes mellitus, dyslipidemia 04/13: 65-year-old male history CKD hypertension diabetes dyslipidemia, presenting with ALOC. Lethargic were few days. On presentation has acidosis 7.2, chronic anemia 8.6., hyperkalemia 6.0, creatinine 6, BUN azotemia 69, anion gap acidosis, mild transaminitis, BNP elevated 1231. Progression of CKD, likely uremic encephalopathy, head CT benign, renal nephrology consulted plan for starting dialysis. Also having bradycardia, tachypnea, on 6 L mask, hypotensive 170s,. Continuing trial of Lasix 80 IV daily, sliding scale for diabetes,. 04/14: Patient continues to protect airway, yesterday did BiPAP trial which did not improve the acidosis. Acidosis likely from uremic. Patient A&O times 3-4, family at bedside supportive. Continue for plan for IR tunnel cath and then dialysis, we will re-evaluate thereafter. On eval patient is is excessively fatigued and sleepy, no pericardial rub, likely effects of uremia. Can deescalate care to tele after dialysis. 04/15: Nephrology monitoring, plan for outpatient dialysis, we will put social order for set up for chair time. Continuing monitoring, daily CMP. Nephrology following appreciate recommendations. 04/16: Patient on 7 L oxygen, making good urine, continued to get dialysis. We will continue BiPAP at night 05/13, can try patient on Oxymizer to deescalate patient to telemetry if needed. Patient can deescalate to telemetry today. Patient continues to have rhonchi, unclear whether this is pneumonia versus ESRD, we will start ceftriaxone 1 g daily, azithromycin 500 mg daily. We will also start patient on baclofen 10 b.i.d. for lower back pain 04/17: Continuing patient on treatment for possible pneumonia, patient is more alert oriented and interactive since dialysis has started. Waiting for chair time. Likely DC tomorrow with completion course of antibiotics and possibly have care time set up by tomorrow. We will follow up with social workers. Rectal thermometer for unknown reason we will remove. 04/18: Replace potassium, continue ESRD, waiting for chair time, we will ambulate patient with RN, if has trouble we will get PT onboard. If ambulating well we will remove Espinal. Patient on 2 L nasal cannula, we will get room air ABG after trying to wean off. Otherwise continue present management. Antibiotics to finish today. - tentative discharge plan: the patient needs sniff, acute PT rehab as there is maximal assist needed but showing rehab potential. continuing oxygen, to be taken continuous nasal cannula 2 L / no further antibiotics need. stop metformin, take insulin NovoLog R FlexPen, we will do sliding scale insulin only for meals. If take insulin must take meal to avoid hypoglycemia.. Continue dialysis schedule as per chair time schedule, [facility] dialysis. continue other home medications not mentioned above. follow up with PCP to review discharge. follow up with DC clinic 1 week. - patient having maximum assist, need to finalize insulin need for home. We will hold off discharge today. Patient likely needs SNF PT rehab but is in agreement with his needs and wants to go home. We will have family meeting with son. We will change insulin to mild a.c. HS. 04/19: Patient discharge see DC summary 04/20: Waiting for SNF PT placement. Continue continuous cannula 2 L at SNF,. 04/21: Continuing to wait for placement for SNF for acute PT rehab. Continue other plan per DC summary plan. Continue nasal cannula oxygen 2 L. Continues. Diagnosis: Acute uremic encephalopathy , now dialysis dependent tunnel catheter for dialysis Acute metabolic encephalopathy, due to above pneumonia, gram neg/gram pos likely Hypokalemia Hypervolemia, diuretic resistant Mild transaminitis Azotemia Anemia, chronic from a normocytic, likely anemia of chronic renal disease Acidosis Anion gap metabolic acidosis Bradycardia Tachypnea Hypertensive crisis History of hypertension CKD Diabetes mellitus type 2 Dyslipidemia Plan: Trial Lasix 80 IV daily Nephrology consult Order for IR tunneled catheter insertion Trial BiPAP Per nephrology, plan for dialysis Continue other home medications NPO status Fall risk Bedrest continues Oxygen maintain saturation more than 90%, RT to titrate Haldol for agitation prn , avoiding any use of benzodiazepines or respiratory sedatives Tele Full code Plan discussed with: Patient Date of Service: Apr 21, 2025 Billing Provider: LUNA ROBERTSON MD Common Visit Codes: [id number] INP/OBS CARE(HIGH) LUNA ROBERTSON MD Apr 21, 2025 09:49
--- NOTE | 2025-04-21 17:05 | DVHPN2 ---
Progress Note Date Seen: Apr 21, 2025 Medical Necessity Reason Pt with a Central, PICC or Fol: Yes Subjective Patient reports: No new complaints Review of Systems: Deferred Objective vital signs Vital Sign Date Time Temp Pulse Resp B/P (MAP) Pulse Ox O2 Delivery O2 Flow Rate FiO2 04/21/25 14:42 156/77 04/21/25 13:00 97.2 72 18 99 97.2 04/21/25 10:00 Nasal Cannula 2.0 04/21/25 09:59 28 Total Intake and Output 04/20/25 04/20/25 04/21/25 15:00 23:00 07:00 Intake Total 0 ml 720 ml 200 ml Output Total 200 ml 250 ml Balance 0 ml 520 ml -50 ml medications Current Medications Medications Dose Ordered Sig/Lurdes Route Start Time Stop Time Status Last Admin Dose Admin Ondansetron HCl 4 mg Q4HP PRN IV 04/12/25 19:45 04/20/25 20:07 4 MG Nitroglycerin 0.4 mg Q5MINP PRN SL 04/12/25 19:45 Morphine Sulfate 2 mg Q30M PRN IV 04/12/25 19:45 Ipratropium [place] 0.5 mg Q6HWA NEB 04/13/25 12:00 04/21/25 11:24 0.5 MG Albuterol 2.5 mg Q6HWA NEB 04/13/25 12:00 04/21/25 11:24 2.5 MG Hydralazine HCl 10 mg Q6HP PRN IV 04/14/25 10:15 04/21/25 03:10 10 MG Amlodipine Besylate 10 mg DAILY PO 04/15/25 10:00 04/21/25 09:49 10 MG Calcium Acetate 667 mg TIDWMEALS PO 04/16/25 10:45 04/21/25 14:42 667 MG Hydralazine HCl 50 mg Q8HR PO 04/16/25 14:00 04/21/25 14:42 50 MG Ceftriaxone Sodium 50 ml @ 100 mls/hr DAILY@09 IV 04/16/25 14:00 04/21/25 09:06 100 MLS/HR Azithromycin 250 ml @ 125 mls/hr DAILY IV 04/16/25 15:00 04/21/25 09:48 125 MLS/HR Baclofen 10 mg BID PO 04/16/25 22:00 04/21/25 09:49 10 MG Acetaminophen 650 mg Q4HP PRN PO 04/16/25 14:00 Acetaminophen/ Hydrocodone Bitart 1 tab Q6HP PRN PO 04/16/25 14:00 04/19/25 22:10 1 TAB Diagnostic Test (Pha) 1 strip ACHS 04/18/25 17:00 04/21/25 12:24 1 STRIP Insulin Human Regular ACHS SC 04/18/25 17:00 04/20/25 22:40 3 UNITS Dextrose 50 ml UD PRN IV 04/18/25 16:15 Losartan Potassium 100 mg DAILY PO 04/21/25 10:00 04/21/25 09:49 100 MG Furosemide 40 mg DAILY IV 04/21/25 10:00 04/21/25 09:48 40 MG Ferrous Sulfate 325 mg BIDWM PO 04/20/25 18:00 04/21/25 08:17 325 MG laboratory and microbiology Laboratory Tests 04/20/25 05:16 04/18/25 06:09 Test 04/20/25 05:16 Range/Units Serum Glucose 155 H 74-106 mg/dL Microbiology Date/Time Source Procedure Growth Status 04/12/25 14:13 Blood Blood Culture - Final NO GROWTH AFTER 5 DAYS OF INCUBATION. 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 Hypertension Dyslipidemia Obesity Hyperkalemia Metabolic acidosis Anemia of chronic kidney disease Hyperphosphatemia Recommendations HD today next HD 04/22 monitor for renal recovery bp high -adjust meds on 2L NC chairtime arranged dc pending snf Plan discussed with: Patient My Orders My Orders Orders - LAILA JACINTO MD Procedure Category Date Status Time Losartan Tablet PHA 04/21/25 In Process (Cozaar Tablet) 10:00 Ferrous Sulfate Tablet PHA 04/20/25 In Process 18:00 Furosemide Injection PHA 04/21/25 In Process (Lasix Injection) 10:00 Dietary Evaluation Review Comments: Monitor PO intake, lab values, weight trend, and I/O Expected Outcomes/Goals: Intake to meet >75% estimated needs Lab values to improve FU 3-5 days LAILA JACINTO MD Apr 21, 2025 17:05
== END 2025-04-21 17:15 | DRG 133 ==
LOC: ER 14:00 → EDBD 14:00 → OVERFLOW 19:35 → TELE-EAST 04-16 22:55 → EAST 04-20 05:07
PROVIDERS: ADMIT Student in an Organized Health Care Education/Training Program; ATTEND Student in an Organized Health Care Education/Training Program
PROC: 5A09357 Assistance with Respiratory Ventilation, Less than 24 Consecutive Hours, Continuous Positive Airway Pressure (ICD-10-PCS; principal; 2025-04-13)
PROC: 5A1D70Z Performance of Urinary Filtration, Intermittent, Less than 6 Hours Per Day (ICD-10-PCS; 2025-04-14)
PROC: 0JH63XZ Insertion of Tunneled Vascular Access Device into Chest Subcutaneous Tissue and Fascia, Percutaneous Approach (ICD-10-PCS; 2025-04-14)
PROC: 02H633Z Insertion of Infusion Device into Right Atrium, Percutaneous Approach (ICD-10-PCS; 2025-04-14)
PROC: B5181ZA Fluoroscopy of Superior Vena Cava using Low Osmolar Contrast, Guidance (ICD-10-PCS; 2025-04-14)
PROC: B548ZZA Ultrasonography of Superior Vena Cava, Guidance (ICD-10-PCS; 2025-04-14)
PROC: 5A1D70Z Performance of Urinary Filtration, Intermittent, Less than 6 Hours Per Day (ICD-10-PCS; 2025-04-15)
PROC: 5A1D70Z Performance of Urinary Filtration, Intermittent, Less than 6 Hours Per Day (ICD-10-PCS; 2025-04-18)
PROC: 5A1D70Z Performance of Urinary Filtration, Intermittent, Less than 6 Hours Per Day (ICD-10-PCS; 2025-04-20)
DX: J96.01 Acute respiratory failure with hypoxia (principal); G93.41 Metabolic encephalopathy; J15.69 Pneumonia due to other Gram-negative bacteria; E87.20 Acidosis, unspecified; I12.0 Hypertensive chronic kidney disease with stage 5 chronic kidney disease or end stage renal disease; E83.39 Other disorders of phosphorus metabolism; D63.1 Anemia in chronic kidney disease; J15.9 Unspecified bacterial pneumonia; N18.6 End stage renal disease; Z99.2 Dependence on renal dialysis; N17.9 Acute kidney failure, unspecified; E11.22 Type 2 diabetes mellitus with diabetic chronic kidney disease; E66.9 Obesity, unspecified; E87.5 Hyperkalemia; I16.9 Hypertensive crisis, unspecified; E78.5 Hyperlipidemia, unspecified; E87.6 Hypokalemia; R74.01 Elevation of levels of liver transaminase levels; Z68.30 Body mass index [BMI] 30.0-30.9, adult; Z83.3 Family history of diabetes mellitus; Z82.49 Family history of ischemic heart disease and other diseases of the circulatory system; Z74.01 Bed confinement status
CPT/HCPCS: 36415; 36558; 36600; 70450; 71045; 76775; 77001; 80048; 80053; 81001; 82306; 82550; 82570; 82728; 82805; 82962; 83540; 83550; 83605; 83735; 83880; 83970; 84100; 84156; 84300; 84484; 85025; 85610; 85730; 86803; 87040; 87340; 90935; 93005; 93306; 94640; 94660; 96365; 96367; 96368; 96375; 97110; 97116; 97163; 97530; 99152; 99291; 99292; C1894; G0378; J0692; J1642; J1756; J1815; J2250; J2405